=== PATIENT | female | born 1945 | race Caucasian/White ===

== ENCOUNTER → 2018-02-10 12:28 | Outpatient (CLI) | payer OTHER, SELFPAY ==
[2018-02-10 14:55] LABS: INR 2.8 (0.9-1.3); Prothrombin Time 30.1 SECONDS (10.1-12.7)
== END ==
PROVIDERS: PCP Internal Medicine; Visit Provider Internal Medicine
DX: I48.0 Paroxysmal atrial fibrillation (principal); Z79.01 Long term (current) use of anticoagulants
CPT/HCPCS: 36415; 85610

== ENCOUNTER → 2018-03-02 12:35 | Outpatient (CLI) | payer OTHER, SELFPAY ==
[2018-03-02 13:26] LABS: INR 3.8 (0.9-1.3); Prothrombin Time 40.9 SECONDS (10.1-12.7)
== END ==
PROVIDERS: Family Provider Internal Medicine; PCP Internal Medicine; Visit Provider Internal Medicine
DX: I48.0 Paroxysmal atrial fibrillation (principal); Z79.01 Long term (current) use of anticoagulants
CPT/HCPCS: 36415; 85610

== ENCOUNTER → 2018-05-07 16:05 | Outpatient (CLI) | payer OTHER, SELFPAY ==
[2018-05-07 16:38] LABS: INR 2.5 (0.9-1.3); Prothrombin Time 27.2 SECONDS (10.1-12.7)
== END ==
PROVIDERS: Family Provider Internal Medicine; PCP Internal Medicine; Visit Provider Internal Medicine
DX: Z79.01 Long term (current) use of anticoagulants (principal); I48.0 Paroxysmal atrial fibrillation
CPT/HCPCS: 36415; 85610

== ENCOUNTER → 2018-07-28 10:39 | Outpatient (CLI) | payer OTHER, SELFPAY ==
[2018-07-28 11:56] LABS: Prothrombin Time 32.7 SECONDS (10.1-12.7)
== END ==
PROVIDERS: PCP Internal Medicine; Visit Provider Internal Medicine
DX: Z79.01 Long term (current) use of anticoagulants (principal); I48.0 Paroxysmal atrial fibrillation
CPT/HCPCS: 36415; 85610

== ENCOUNTER → 2018-12-14 11:47 | Outpatient (CLI) | payer OTHER, SELFPAY ==
[2018-12-14 12:38] LABS: INR 2.4 (0.9-1.3); Prothrombin Time 27.8 SECONDS (10.1-12.7)
== END ==
PROVIDERS: Family Provider Internal Medicine; PCP Internal Medicine; Visit Provider Pharmacist
DX: Z79.01 Long term (current) use of anticoagulants (principal); I48.0 Paroxysmal atrial fibrillation
CPT/HCPCS: 36415; 85610

== ENCOUNTER → 2019-04-20 13:56 | Outpatient (CLI) | payer OTHER, SELFPAY ==
[2019-04-20 15:11] LABS: INR 3.1 (0.9-1.3); Prothrombin Time 36.5 SECONDS (10.1-12.7)
== END ==
PROVIDERS: PCP Internal Medicine; Visit Provider Internal Medicine
DX: Z79.01 Long term (current) use of anticoagulants (principal); I48.0 Paroxysmal atrial fibrillation
CPT/HCPCS: 36415; 85610

== ENCOUNTER → 2019-05-04 13:23 | Outpatient (CLI) | payer OTHER, SELFPAY ==
[2019-05-04 14:31] LABS: INR 3.3 (0.9-1.3); Prothrombin Time 38.9 SECONDS (10.1-12.7)
== END ==
PROVIDERS: PCP Internal Medicine; Visit Provider Internal Medicine
DX: Z79.01 Long term (current) use of anticoagulants (principal); I48.0 Paroxysmal atrial fibrillation
CPT/HCPCS: 36415; 85610

== ENCOUNTER → 2019-05-25 11:32 | Outpatient (CLI) | payer OTHER, SELFPAY ==
[2019-05-25 12:29] LABS: INR 2.6 (0.9-1.3); Prothrombin Time 30.1 SECONDS (10.1-12.7)
== END ==
PROVIDERS: PCP Internal Medicine; Visit Provider Internal Medicine
DX: Z79.01 Long term (current) use of anticoagulants (principal); I48.0 Paroxysmal atrial fibrillation
CPT/HCPCS: 36415; 85610

== ENCOUNTER → 2019-11-25 12:18 | Outpatient (CLI) | payer OTHER, SELFPAY ==
[2019-11-25 13:39] LABS: INR 1.8 (0.9-1.3)
== END ==
PROVIDERS: PCP Internal Medicine; Referring Provider Internal Medicine; Visit Provider Internal Medicine
DX: Z79.01 Long term (current) use of anticoagulants (principal); I48.0 Paroxysmal atrial fibrillation
CPT/HCPCS: 36415; 85610

== ENCOUNTER → 2019-12-09 16:03 | Outpatient (CLI) | payer OTHER, SELFPAY ==
[2019-12-09 16:38] LABS: INR 2.4 (0.9-1.3); Prothrombin Time 27.7 SECONDS (10.1-12.7)
== END ==
PROVIDERS: PCP Internal Medicine; Referring Provider Internal Medicine; Visit Provider Internal Medicine
DX: Z79.01 Long term (current) use of anticoagulants (principal); I48.0 Paroxysmal atrial fibrillation
CPT/HCPCS: 36415; 85610

== ENCOUNTER → 2019-12-31 10:55 | Outpatient (CLI) | payer OTHER, SELFPAY ==
[2019-12-31 12:39] LABS: INR 2.1 (0.9-1.3); Prothrombin Time 24.3 SECONDS (10.1-12.7)
== END ==
PROVIDERS: PCP Internal Medicine; Referring Provider Internal Medicine; Visit Provider Internal Medicine
DX: Z79.01 Long term (current) use of anticoagulants (principal); I48.0 Paroxysmal atrial fibrillation
CPT/HCPCS: 36415; 85610

== ENCOUNTER → 2020-01-28 14:45 | Outpatient (CLI) | payer OTHER, SELFPAY ==
[2020-01-28 15:43] LABS: INR 2.1 (0.9-1.3); Prothrombin Time 24.2 SECONDS (10.1-12.7)
== END ==
PROVIDERS: PCP Internal Medicine; Visit Provider Internal Medicine
DX: Z79.01 Long term (current) use of anticoagulants (principal); I48.0 Paroxysmal atrial fibrillation
CPT/HCPCS: 36415; 85610

== ENCOUNTER → 2020-04-10 12:54 | Outpatient (CLI) | payer OTHER, SELFPAY ==
[2020-04-10 13:42] LABS: INR 2.6 (0.9-1.3); Prothrombin Time 30.3 SECONDS (10.1-12.7)
== END ==
PROVIDERS: PCP Internal Medicine; Referring Provider Internal Medicine; Visit Provider Internal Medicine
DX: Z79.01 Long term (current) use of anticoagulants (principal)
CPT/HCPCS: 36415; 85610

== ENCOUNTER → 2020-05-12 12:10 | Outpatient (CLI) | payer OTHER, SELFPAY ==
[2020-05-12 12:56] LABS: INR 2.8 (0.9-1.3)
== END ==
PROVIDERS: PCP Internal Medicine; Referring Provider Internal Medicine; Visit Provider Internal Medicine
DX: I48.0 Paroxysmal atrial fibrillation (principal); Z79.01 Long term (current) use of anticoagulants
CPT/HCPCS: 36415; 85610

== ENCOUNTER → 2020-06-09 11:38 | Outpatient (CLI) | payer OTHER, SELFPAY ==
[2020-06-09 12:21] LABS: INR 2.9 (0.9-1.3); Prothrombin Time 33.3 SECONDS (10.1-12.7)
== END ==
PROVIDERS: PCP Internal Medicine; Referring Provider Internal Medicine; Visit Provider Internal Medicine
DX: Z79.01 Long term (current) use of anticoagulants (principal); I48.0 Paroxysmal atrial fibrillation
CPT/HCPCS: 36415; 85610

== ENCOUNTER → 2020-07-21 10:20 | Outpatient (CLI) | payer OTHER, SELFPAY ==
[2020-07-21 11:47] LABS: INR 2.4 (0.9-1.3); Prothrombin Time 27.2 SECONDS (10.1-12.7)
== END ==
PROVIDERS: PCP Internal Medicine; Referring Provider Internal Medicine; Visit Provider Internal Medicine
DX: Z79.01 Long term (current) use of anticoagulants (principal); I48.0 Paroxysmal atrial fibrillation
CPT/HCPCS: 36415; 85610

== ENCOUNTER → 2020-09-01 12:35 | Outpatient (CLI) | payer OTHER, SELFPAY ==
[2020-09-01 12:59] LABS: INR 2.1 (0.9-1.3); Prothrombin Time 23.5 SECONDS (10.1-12.7)
== END ==
PROVIDERS: PCP Internal Medicine; Referring Provider Internal Medicine; Visit Provider Internal Medicine
DX: I48.0 Paroxysmal atrial fibrillation (principal); Z79.01 Long term (current) use of anticoagulants
CPT/HCPCS: 36415; 85610

== ENCOUNTER → 2020-11-13 15:28 | Outpatient (CLI) | payer OTHER, SELFPAY ==
[2020-11-13 16:06] LABS: Prothrombin Time 22.7 SECONDS (10.1-12.7)
== END ==
PROVIDERS: PCP Internal Medicine; Referring Provider Internal Medicine; Visit Provider Internal Medicine
DX: Z79.01 Long term (current) use of anticoagulants (principal)
CPT/HCPCS: 36415; 85610

== ENCOUNTER → 2021-02-22 14:37 | Outpatient (CLI) | payer OTHER, SELFPAY ==
[2021-02-22 15:18] LABS: Prothrombin Time 46.6 SECONDS (10.1-12.7)
== END ==
PROVIDERS: PCP Internal Medicine; Referring Provider Internal Medicine; Visit Provider Internal Medicine
DX: I48.0 Paroxysmal atrial fibrillation (principal); Z79.01 Long term (current) use of anticoagulants
CPT/HCPCS: 36415; 85610

== ENCOUNTER → 2021-03-02 11:22 | Outpatient (CLI) | payer OTHER, SELFPAY ==
[2021-03-02 12:39] LABS: INR 3.4 (0.9-1.3); Prothrombin Time 39.4 SECONDS (10.1-12.7)
== END ==
PROVIDERS: PCP Internal Medicine; Referring Provider Internal Medicine; Visit Provider Internal Medicine
DX: Z79.01 Long term (current) use of anticoagulants (principal); I48.0 Paroxysmal atrial fibrillation
CPT/HCPCS: 36415; 85610

== ENCOUNTER → 2021-03-20 13:06 | Outpatient (CLI) | payer OTHER, SELFPAY ==
[2021-03-20 15:40] LABS: Prothrombin Time 46.8 SECONDS (10.1-12.7)
== END ==
PROVIDERS: PCP Internal Medicine; Referring Provider Internal Medicine; Visit Provider Internal Medicine
DX: Z79.01 Long term (current) use of anticoagulants (principal); I48.0 Paroxysmal atrial fibrillation
CPT/HCPCS: 36415; 85610

== ENCOUNTER → 2021-04-03 10:14 | Outpatient (CLI) | payer OTHER, SELFPAY ==
[2021-04-03 12:17] LABS: INR 2.6 (0.9-1.3); Prothrombin Time 30.1 SECONDS (10.1-12.7)
== END ==
PROVIDERS: PCP Internal Medicine; Referring Provider Internal Medicine; Visit Provider Internal Medicine
DX: Z79.01 Long term (current) use of anticoagulants (principal); I48.0 Paroxysmal atrial fibrillation
CPT/HCPCS: 36415; 85610

== ENCOUNTER → 2021-04-27 13:15 | Outpatient (CLI) | payer OTHER, SELFPAY ==
[2021-04-27 14:10] LABS: INR 2.1 (0.9-1.3); Prothrombin Time 24.2 SECONDS (10.1-12.7)
== END ==
PROVIDERS: PCP Internal Medicine; Referring Provider Internal Medicine; Visit Provider Internal Medicine
DX: Z79.01 Long term (current) use of anticoagulants (principal); I48.0 Paroxysmal atrial fibrillation
CPT/HCPCS: 36415; 85610

== ENCOUNTER → 2021-05-22 14:02 | Outpatient (CLI) | payer OTHER, SELFPAY ==
[2021-05-22 14:36] LABS: INR 2.4 (0.9-1.3); Prothrombin Time 27.7 SECONDS (10.1-12.7)
== END ==
PROVIDERS: PCP Internal Medicine; Referring Provider Internal Medicine; Visit Provider Internal Medicine
DX: I48.0 Paroxysmal atrial fibrillation (principal); Z79.01 Long term (current) use of anticoagulants
CPT/HCPCS: 36415; 85610

== ENCOUNTER → 2021-06-19 14:23 | Outpatient (CLI) | payer OTHER, SELFPAY ==
[2021-06-19 14:57] LABS: INR 2.5 (0.9-1.3)
== END ==
PROVIDERS: PCP Internal Medicine; Referring Provider Internal Medicine; Visit Provider Internal Medicine
DX: Z79.01 Long term (current) use of anticoagulants (principal); I48.0 Paroxysmal atrial fibrillation
CPT/HCPCS: 36415; 85610

== ENCOUNTER → 2021-09-13 12:31 | Outpatient (CLI) | payer OTHER, SELFPAY ==
[2021-09-13 14:24] LABS: INR 2.9 (0.9-1.3)
== END ==
PROVIDERS: PCP Internal Medicine; Referring Provider Internal Medicine; Visit Provider Internal Medicine
DX: I48.0 Paroxysmal atrial fibrillation (principal); Z79.01 Long term (current) use of anticoagulants
CPT/HCPCS: 36415; 85610

== ENCOUNTER → 2021-11-09 15:40 | Outpatient (CLI) | payer OTHER, SELFPAY ==
[2021-11-09 16:32] LABS: INR 3.7 (0.9-1.3); Prothrombin Time 42.8 SECONDS (10.1-12.7)
== END ==
PROVIDERS: PCP Internal Medicine; Referring Provider Internal Medicine; Visit Provider Internal Medicine
DX: Z79.01 Long term (current) use of anticoagulants (principal); I48.0 Paroxysmal atrial fibrillation
CPT/HCPCS: 36415; 85610

== ENCOUNTER → 2021-11-28 13:39 | Outpatient (CLI) | payer OTHER, SELFPAY ==
[2021-11-28 14:28] LABS: INR 2.3 (0.9-1.3); Prothrombin Time 26.5 SECONDS (10.1-12.7)
== END ==
PROVIDERS: PCP Internal Medicine; Referring Provider Internal Medicine; Visit Provider Internal Medicine
DX: I48.0 Paroxysmal atrial fibrillation (principal); Z79.01 Long term (current) use of anticoagulants
CPT/HCPCS: 36415; 85610

== ENCOUNTER → 2022-02-15 15:37 | Outpatient (CLI) | payer OTHER, SELFPAY ==
[2022-02-15 16:34] LABS: INR 2.9 (0.9-1.3); Prothrombin Time 34.3 SECONDS (10.1-12.7)
== END ==
PROVIDERS: PCP Internal Medicine; Referring Provider Internal Medicine; Visit Provider Internal Medicine
DX: Z79.01 Long term (current) use of anticoagulants (principal)
CPT/HCPCS: 36415; 85610

== ENCOUNTER → 2022-04-15 12:21 | Outpatient (CLI) | payer OTHER, SELFPAY ==
[2022-04-15 13:23] LABS: INR 2.8 (0.9-1.3); Prothrombin Time 31.6 SECONDS (10.1-12.7)
== END ==
PROVIDERS: PCP Internal Medicine; Referring Provider Internal Medicine; Visit Provider Internal Medicine
DX: I48.0 Paroxysmal atrial fibrillation (principal); Z79.01 Long term (current) use of anticoagulants
CPT/HCPCS: 36415; 85610

== ENCOUNTER → 2022-06-12 15:43 | Outpatient (CLI) | payer OTHER, SELFPAY ==
[2022-06-12 17:06] LABS: INR 2.7 (0.9-1.3); Prothrombin Time 31.4 SECONDS (10.1-12.7)
== END ==
PROVIDERS: PCP Internal Medicine; Referring Provider Internal Medicine; Visit Provider Internal Medicine
DX: Z79.01 Long term (current) use of anticoagulants (principal)
CPT/HCPCS: 36415; 85610

== ENCOUNTER → 2022-08-26 15:01 | Outpatient (CLI) | payer OTHER, SELFPAY ==
[2022-08-26 23:06] LABS: INR 2.1 (0.9-1.3); Prothrombin Time 24.5 SECONDS (10.1-12.7)
== END ==
PROVIDERS: PCP Internal Medicine; Referring Provider Internal Medicine; Visit Provider Internal Medicine
DX: Z79.01 Long term (current) use of anticoagulants (principal); I48.0 Paroxysmal atrial fibrillation
CPT/HCPCS: 36415; 85610

== ENCOUNTER → 2022-10-22 12:19 | Outpatient (CLI) | payer OTHER, SELFPAY ==
[2022-10-22 13:42] LABS: INR 2.5 (0.9-1.3); Prothrombin Time 29.1 SECONDS (10.1-12.7)
== END ==
PROVIDERS: PCP Internal Medicine; Referring Provider Internal Medicine; Visit Provider Internal Medicine
DX: Z79.01 Long term (current) use of anticoagulants (principal); I48.0 Paroxysmal atrial fibrillation
CPT/HCPCS: 36415; 85610

== ENCOUNTER → 2023-01-27 15:35 | Outpatient (CLI) | payer OTHER, SELFPAY ==
[2023-01-27 16:25] LABS: INR 3.3 (0.9-1.3); Prothrombin Time 38.4 SECONDS (10.1-12.7)
== END ==
PROVIDERS: PCP Internal Medicine; Referring Provider Internal Medicine; Visit Provider Internal Medicine
DX: Z79.01 Long term (current) use of anticoagulants (principal); I48.0 Paroxysmal atrial fibrillation
CPT/HCPCS: 36415; 85610

== ENCOUNTER → 2023-02-07 15:50 | Outpatient (CLI) | payer OTHER, SELFPAY ==
[2023-02-07 17:26] LABS: Add Manual Diff / Slide Review NO; Basophils Absolute Auto 0 /uL (0-100); Basophils Percent Auto 0.5 % (0-2); Eosinophils Absolute Auto 0 /uL (0-450); Eosinophils Percent Auto 0.1 % (2-4); Hematocrit 36.3 % (36-46); Hemoglobin 12.5 g/dL (12.0-16.0); Lymphocytes Absolute Auto 1100 /uL (1100-4500); Lymphocytes Percent Auto 14.4 % (25-40); Mean Corpuscular HGB Conc 34.3 % (30-36); Mean Corpuscular Hemoglobin 32.7 PG (26-34); Mean Corpuscular Volume 95.3 fL (80-100); Monocytes Absolute Auto 200 /uL (0-900); Monocytes Percent Auto 3.2 % (3-14); Neutrophils Absolute Auto 6100 /uL (1500-7000); Neutrophils Percent Auto 81.8 % (50-75); Platelet Count 198 X10^3/uL (150-400); Red Blood Cell Count 3.81 X10^6/uL (4.0-5.2); Red Cell Distribution Width 15.5 % (11.6-14.8); White Blood Cell Count 7.4 X10^3/uL (4.5-11.0)
[2023-02-07 17:51] LABS: Alanine Aminotransferase 34 IU/L (<35); Albumin 4.6 g/dL (3.5-5.0); Albumin Globulin Ratio 1.3 (1.0-2.8); Alkaline Phosphatase 152 U/L (38-126); Aspartate Aminotransferase 37 IU/L (14-36); BUN Creatinine Ratio 36.7 (6-22); Bilirubin Total 0.9 mg/dL (0.2-1.3); Blood Urea Nitrogen 33 mg/dL (7-17); C-Reactive Protein Quant 0.8 mg/dL (<1.0); Calcium 9.1 mg/dL (8.4-10.2); Carbon Dioxide 21 mmol/L (22-32); Chloride 100 mmol/L (98-107); Estimated Glomerular Filt Rate > 60 mL/min (>60); Globulin 3.6 g/dL (1.7-4.1); Glucose 157 mg/dL (80-110); HEMOLYSIS 28 (0-50); Potassium 3.9 mmol/L (3.4-5.1); Sodium 137 mmol/L (137-145); Total Protein 8.2 g/dL (6.3-8.2)
[2023-02-07 19:10] LABS: Erythrocyte Sedimentation Rate 46 MM/HR (0-20)
== END ==
PROVIDERS: PCP Internal Medicine; Referring Provider Internal Medicine Rheumatology; Visit Provider Internal Medicine Rheumatology
DX: Z79.899 Other long term (current) drug therapy (principal)
CPT/HCPCS: 36415; 80053; 85025; 85651; 86140

== ENCOUNTER → 2023-02-14 13:42 | Outpatient (CLI) | payer OTHER, SELFPAY ==
[2023-02-14 14:42] LABS: INR 2.6 (0.9-1.3); Prothrombin Time 29.8 SECONDS (10.1-12.7)
== END ==
PROVIDERS: PCP Internal Medicine; Referring Provider Internal Medicine; Visit Provider Internal Medicine
DX: Z79.01 Long term (current) use of anticoagulants (principal); I48.0 Paroxysmal atrial fibrillation
CPT/HCPCS: 36415; 85610

== ENCOUNTER → 2023-03-20 15:38 | Outpatient (CLI) | payer OTHER, SELFPAY ==
[2023-03-20 18:23] LABS: INR 2.2 (0.9-1.3)
== END ==
PROVIDERS: PCP Internal Medicine; Referring Provider Internal Medicine; Visit Provider Internal Medicine
DX: Z79.01 Long term (current) use of anticoagulants (principal); I48.0 Paroxysmal atrial fibrillation
CPT/HCPCS: 36415; 85610

== ENCOUNTER → 2023-04-21 12:25 | Outpatient (CLI) | payer OTHER, SELFPAY ==
[2023-04-21 14:12] LABS: INR 2.5 (0.9-1.3); Prothrombin Time 28.7 SECONDS (10.1-12.7)
== END ==
PROVIDERS: PCP Internal Medicine; Referring Provider Internal Medicine; Visit Provider Internal Medicine
DX: Z79.01 Long term (current) use of anticoagulants (principal); I48.0 Paroxysmal atrial fibrillation
CPT/HCPCS: 36415; 85610

== ENCOUNTER → 2023-05-23 13:56 | Outpatient (CLI) | payer OTHER, SELFPAY ==
[2023-05-23 14:55] LABS: INR 2.4 (0.9-1.3); Prothrombin Time 27.3 SECONDS (10.1-12.7)
== END ==
PROVIDERS: PCP Internal Medicine; Referring Provider Internal Medicine; Visit Provider Internal Medicine
DX: Z79.01 Long term (current) use of anticoagulants (principal); I48.0 Paroxysmal atrial fibrillation
CPT/HCPCS: 36415; 85610

== ENCOUNTER 2023-07-13 09:31 | Inpatient (IN) | payer OTHER, SELFPAY ==
[2023-07-13] VITALS (53 sets, daily range): BP systolic 86–158; BP diastolic 47–82; PULSE 103–129; RESP 11–30; TEMP 36.4–36.6; O2SAT 95–100; BMI 34.9
--- NOTE | 2023-07-13 09:51 | ED_ITS ---
HPI - Fall General Chief Complaint: Weakness Stated Complaint: Fell out of bed Time Seen by Provider: 07/13/23 09:41 Source: patient, EMS and RN notes reviewed Mode of arrival: EMS Limitations: no limitations History of Present Illness HPI Narrative: 78-year-old female with history of atrial fibrillation on warfarin, hypertension, dyslipidemia, history of breast cancer with lumpectomy newly diagnosed with metastatic breast cancer started radiation last week. Patient states she is had persistent thoracic back pain between her shoulder blades, she is been taking oxycodone for pain. She states she spent most of the weekend bed. She went to get out of bed this morning and sort of slid out of bed to the floor with increase in her thoracic pain. She received 10 mg total of morphine and 5 mg aliquots in transport. She was still quite uncomfortable received additional dose of Dilaudid in his much more comfortable at this time. She states no significant weakness. She denies headache, no fevers, no chest pain or shortness of breath. She denies any nausea or vomiting no new GI or urinary symptoms. No incontinence. No numbness tingling or weakness. Patient states she is felt woozy and just unwell in general. She states this is a recent diagnosis her workup has been outpatient so far. She states she has a history of breast cancer had a lumpectomy was thought to be cured and then recently found to have new breast cancer with metastases some on top of her spine. Patient states she started radiation last week, she is not received any chemotherapy. She does not recall all her medications but no she is on warfarin for atrial fibrillation, metoprolol for hypertension, medication for dyslipidemia she denies any diabetes, renal issues no prior coronary artery disease. She denies any drug allergies. Former smoker, drinks 2-3 glasses of wine daily, no recreational drugs. Patient states her primary care and workup have been through [facility]. She denies any recent hospitalization. Related Data Home Medications Medication Instructions Recorded Confirmed CYANOCOBALAMIN (VITAMIN B-12) 1 tab PO Q DAY ##0 02/03/12 07/13/23 (Vitamin B-12) VITAMIN D 3,000 iu PO QDAY ##0 02/03/12 07/13/23 bumetanide 1 mg tablet 1 mg PO SEEINSTR 07/13/23 07/13/23 dexamethasone 1 mg tablet 1 mg PO SEEINSTR 07/13/23 07/13/23 dexamethasone 2 mg tablet 2 mg PO SEEINSTR 07/13/23 07/13/23 ketoconazole 2 % topical cream 1 applic topical BID 07/13/23 07/13/23 losartan 50 mg tablet 50 mg PO DAILY 07/13/23 07/13/23 metoprolol tartrate 25 mg tablet 25 mg PO BID 07/13/23 07/13/23 potassium chloride 20 mEq 20 meq PO BID 07/13/23 07/13/23 tablet,extended release prednisone 1 mg tablet 2 mg PO DAILY 07/13/23 07/13/23 prednisone 5 mg tablet 5 mg PO SEEINSTR 07/13/23 07/13/23 simvastatin 20 mg tablet 20 mg PO ONCE PM 07/13/23 07/13/23 warfarin 5 mg tablet 5 mg PO SEEINSTR 07/13/23 07/13/23 Allergies Allergy/AdvReac Type Severity Reaction Status Date / Time No Known Drug Allergies Allergy Verified 07/13/23 15:50 Review of Systems Review of Systems ROS Unobtainable: All systems reviewed & are unremarkable except as noted in HPI and below Patient History Social History household members: spouse Smoking Status: Former smoker alcohol intake: current Exam Narrative Exam Narrative: GEN: well nourished, well appearing female, alert and oriented x 3, patient appears to be in mild distress. HEENT: Atraumatic, pupils are equal round reactive to light, extraocular movements are intact, nares are clear, there is no conjunctival pallor. Throat is clear without any exudates, erythema, tonsillar enlargement or uvular deviation HEART: Regular rate and rhythm without murmur, clicks, rubs. No carotid bruits, pulses are equal in upper and lower extremities LUNGS:Lungs clear to auscultation, no wheezes, rales, crackles, chest moves symmetrically ABD:bowel sounds normal, soft, non-tender, no guarding, rebound, rigidity, no masses noted, no hepatosplenomegaly :No CVA tenderness BACK: No cervical, thoracic or lumbar vertebral point tenderness. Patient has decreased range of motion. 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 Dorsalis pedis and tibialis pulses are 2+ and lower extremities. Sensation is intact in the upper and lower extremities. MSCL: Non-tender, no muscle atrophy, muscles strength 5/5 upper and lower extremities, full range of motion. NEURO:CN 2-12 intact, sensation normal SKIN: No rash, erythema or other skin changes noted Initial Vital Signs Initial Vital Signs: Vital Signs Pulse Rate 103 H 07/13/23 09:35 Pulse Oximetry 99 07/13/23 09:35 Course Orders Ordered: ED Orders 07/13/23 10:32 CT chest abd pel w con Stat CT head/brain wo con Stat EKG-12 Lead Stat 07/13/23 10:37 CBC Auto Diff [Complete Blood Count AUTO DIFF] Stat PTT Partial Thromboplastin Jayce Stat Prothrombin Time INR Stat 07/13/23 11:00 CMP [Comprehensive Metabolic Panel] Stat Acetaminophen (Acetaminophen 325 Mg Tablet) 650 mg PO Q6H PRN PRN Reason: Fever/Mild Pain (1-3) Hydromorphone HCl (Hydromorphone 0.5 Mg Inj) 0.5 mg IV Q3H PRN PRN Reason: Pain, Moderate (4-6) Sodium Chloride (Normal Saline 0.9%) 1,000 mls @ 150 mls/hr IV CONT [facility] Last Infusion: 07/13/23 14:52 Dose: 0 mls/hr Documented By: Admin: 07/13/23 13:05 Dose: 150 mls/hr Documented By: SEVERINO Piperacillin Sod/Tazobactam (Sod 3.375 gm/ Sodium Chloride) 100 mls @ 25 mls/hr IV Q8H [facility] Last Admin: 07/13/23 16:01 Dose: 25 mls/hr Documented By: THOMAS Sodium Chloride (Normal Saline 0.9%) 1,000 mls @ 1,000 mls/hr IV BOLUS ONE Stop: 07/13/23 19:59 Melatonin (Melatonin 3 Mg Tablet) 6 mg PO BEDTIME PRN PRN Reason: Insomnia Metoprolol Tartrate (Metoprolol Tartrate 5 Mg/5 Ml Inj) 5 mg IV Q5M PRN PRN Reason: HR >130, hold for SBP <100 Last Admin: 07/13/23 15:43 Dose: 5 mg Documented By: THOMAS Metoprolol Tartrate (Metoprolol Ir 25 Mg Tablet) 25 mg PO BID [facility] Last Admin: 07/13/23 16:51 Dose: 25 mg Documented By: LDV Naloxone HCl (Naloxone 0.4 Mg/Ml Vial) 0.2 mg IV Q2MIN PRN PRN Reason: Opiate Reversal Oxycodone HCl (Oxycodone Ir 5 Mg Tablet) 5 mg PO Q3HR PRN PRN Reason: Pain, Moderate (4-6) Oxycodone HCl (Oxycodone Ir 10 Mg Tablet) 10 mg PO Q3HR PRN PRN Reason: Pain, Severe (7-10) Warfarin Protocol (Warfarin Per Pharmacy (Inr 2-3)) 1 request MISC NOW PRN PRN Reason: Atrial fib Discontinued Medications Diltiazem HCl (Diltiazem 5 Mg/Ml Sdv) 10 mg IV NOW ONE Stop: 07/13/23 18:10 Hydromorphone HCl (Hydromorphone 1 Mg Inj) 1 mg IV NOW ONE Stop: 07/13/23 09:43 Last Admin: 07/13/23 10:03 Dose: 1 mg Documented By: SEVERINO Hydromorphone HCl (Hydromorphone 1 Mg Inj) 1 mg IV NOW ONE Stop: 07/13/23 12:14 Last Admin: 07/13/23 12:19 Dose: 1 mg Documented By: SEVERINO Hydromorphone HCl (Hydromorphone 0.5 Mg Inj) 0.5 mg IV Q4H PRN PRN Reason: Pain, Moderate (4-6) Sodium Chloride (Normal Saline 0.9%) 1,000 mls @ 1,000 mls/hr IV BOLUS ONE Stop: 07/13/23 11:31 Last Infusion: 07/13/23 11:36 Dose: Infused Documented By: Admin: 07/13/23 10:35 Dose: 1,000 mls/hr Documented By: SEVERINO Piperacillin Sod/Tazobactam (Sod 4.5 gm/ Sodium Chloride) 100 mls @ 200 mls/hr IV NOW ONE Stop: 07/13/23 12:01 Last Infusion: 07/13/23 13:26 Dose: Infused Documented By: Admin: 07/13/23 12:10 Dose: 200 mls/hr Documented By: SEVERINO Phytonadione 5 mg/ Sodium (Chloride) 100.5 mls @ 201 mls/hr IV NOW ONE Stop: 07/13/23 13:28 Last Infusion: 07/13/23 14:52 Dose: Infused Documented By: Admin: 07/13/23 14:00 Dose: 201 mls/hr Documented By: SEVERINO Piperacillin Sod/Tazobactam (Sod 3.375 gm/ Sodium Chloride) 100 mls @ 25 mls/hr IV Q8H [facility] Last Admin: 07/13/23 15:53 Dose: Not Given Documented By: LDV Vital Signs Vital signs: Vital Signs - 8 hr 07/13/23 11:15 07/13/23 11:15 07/13/23 11:45 Pulse Rate 106 H 113 H Respiratory Rate 19 17 Blood Pressure 128/71 Pulse Oximetry 100 100 07/13/23 12:00 07/13/23 12:02 07/13/23 12:02 Pulse Rate 110 H 114 H Respiratory Rate 26 H 24 Blood Pressure 141/66 H Pulse Oximetry 100 99 07/13/23 12:15 07/13/23 12:15 07/13/23 12:30 Pulse Rate 109 H 114 H Respiratory Rate 24 17 Blood Pressure 149/70 H Pulse Oximetry 99 100 07/13/23 12:30 07/13/23 12:45 07/13/23 12:45 Pulse Rate 105 H Respiratory Rate 25 H Blood Pressure 149/66 H 123/67 Pulse Oximetry 98 07/13/23 13:00 07/13/23 13:01 07/13/23 13:01 Pulse Rate 112 H 111 H Respiratory Rate 22 23 Blood Pressure 158/67 H Pulse Oximetry 98 98 07/13/23 13:15 07/13/23 13:15 07/13/23 13:30 Pulse Rate 117 H Respiratory Rate 16 Blood Pressure 135/58 L 149/71 H Pulse Oximetry 100 07/13/23 13:30 07/13/23 13:45 07/13/23 13:45 Pulse Rate 118 H 120 H Respiratory Rate 21 19 Blood Pressure 121/71 Pulse Oximetry 100 97 07/13/23 14:00 07/13/23 14:00 07/13/23 14:15 Pulse Rate 121 H 121 H Respiratory Rate 19 18 Blood Pressure 133/82 Pulse Oximetry 98 99 07/13/23 14:15 Pulse Rate Respiratory Rate Blood Pressure 137/72 Pulse Oximetry MDM - Fall Lab Data 07/13/23 10:37 07/13/23 16:20 Labs: Lab Results 07/13/23 07/13/23 Range/Units 10:37 11:00 WBC 12.2 H (4.5-11.0) X10^3/uL RBC 4.52 (4.0-5.2) X10^6/uL Hgb 14.5 (12.0-16.0) g/dL Hct 43.4 (36-46) % MCV 95.9 (80-100) fL MCH 32.1 (26-34) PG MCHC 33.4 (30-36) % RDW 14.4 (11.6-14.8) % Plt Count 135 L (150-400) X10^3/uL Neut % (Auto) 95.9 H (50-75) % Lymph % (Auto) 2.0 L (25-40) % Irwin % (Auto) 1.8 L (3-14) % Eos % (Auto) 0.0 L (2-4) % Baso % (Auto) 0.3 (0-2) % Neut # (Auto) 44243 H (9200-6202) /uL Lymph # (Auto) 200 L (6084-1901) /uL Irwin # (Auto) 200 (0-900) /uL Eos # (Auto) 0 (0-450) /uL Baso # (Auto) 0 (0-100) /uL PT 76.5 H (10.1-12.7) SECONDS INR 6.5 H* (0.9-1.3) APTT 44 H (26-36) SECONDS Sodium 127 L (137-145) mmol/L Potassium 4.6 (3.4-5.1) mmol/L Chloride 92 L (98-107) mmol/L Carbon Dioxide 29 (22-32) mmol/L BUN 42 H (7-17) mg/dL Creatinine 0.64 (0.52-1.04) mg/dL Estimated GFR > 60 (>60) mL/min BUN/Creatinine Ratio 65.6 H (6-22) Glucose 155 H (80-110) mg/dL Lactate 3.8 H (0.7-2.1) mmol/L Calcium 9.0 (8.4-10.2) mg/dL Magnesium 2.3 (1.6-2.3) mg/dL Total Bilirubin 1.1 (0.2-1.3) mg/dL AST 29 (14-36) IU/L ALT 35 H (<35) IU/L Alkaline Phosphatase 113 (38-126) U/L Total Protein 6.5 (6.3-8.2) g/dL Albumin 3.7 (3.5-5.0) g/dL Globulin 2.8 (1.7-4.1) g/dL Albumin/Globulin Ratio 1.3 (1.0-2.8) Procalcitonin 0.34 (<0.5) ng/mL Imaging Data CT scan - head: Radiologist's Impression: Close Head CT (Signed) Dario Garcia - 07/13/23 Chest/Abdomen/Pelvis CT 07/13/23 Launch?[place] [address] CT Scan Report Signed Patient: Maricarmen Springer MR#: [id number] : 1945 Acct:[id number] Age/Sex: 78 / F Date of Service: 07/13/23 Loc: ED Accession Number: [id number] Procedure: CT head/brain wo con Ordering Provider: Giana Norman D.O. PROCEDURE: CT HEAD/BRAIN WO CON INDICATIONS: thoracic back pain, acute on chronic, new breast ca w/ mets TECHNIQUE: Noncontrast 4.5 mm thick angled axial sections acquired from the foramen magnum to the vertex, with coronal and sagittal reformats. For radiation dose reduction, the following was used: automated exposure control, adjustment of mA and/or kV according to patient size. COMPARISON: [facility], CT, HEAD WITHOUT CONTRAST, 12/14/2017, 17:27. FINDINGS: Image quality: Excellent. CSF spaces: Basal cisterns are patent. No extra-axial fluid collections. The ventricles are symmetric in size and shape. Brain: No intracranial bleeds or masses. There is cerebral volume loss for age, with resultant ventricular and sulcal prominence. There are periventricular and deep white matter chronic small vessel ischemic changes. There is intracranial internal carotid artery atherosclerosis. Skull and face: Calvarium and visualized facial bones appear intact, without suspicious lesions. Sinuses: Visualized sinuses and mastoids are clear. IMPRESSION: No acute intracranial pathology. Dictated by: Dario Garcia M.D. on 07/13/2023 at 11:50 Approved by: Dario Garcia M.D. on 07/13/2023 at 11:51 CT chest/abd/pelvis: Radiologist's Impression: [address] [address] [address] Scan Report Signed Patient: Maricarmen Springer MR#: [id number] : 1945 Acct:[id number] Age/Sex: 78 / F Date of Service: 07/13/23 Loc: ED Accession Number: [id number] Procedure: CT chest abd pel w con Ordering Provider: Giana Norman D.O. PROCEDURE: CT CHEST ABD PEL W CON INDICATIONS: fall, thoracic back pain acute on chr, new breast ca w/ mets TECHNIQUE: After the administration of intravenous contrast, 5 mm thick sections acquired from the lung apices to the symphysis. 2.5 mm thick coronal and sagittal reformats were acquired. Additional 7 mm thick coronal maximum intensity projection (MIP) reformats acquired through the lungs. Optional 10-minute delayed imaging may be performed from the kidneys to the bladder. For radiation dose reduction, the following was used: automated exposure control, adjustment of mA and/or kV according to patient size. COMPARISON: None. FINDINGS: Image quality: Excellent. CHEST: Lungs: No pulmonary contusions or lacerations. No acute airspace opacities. No pneumothorax or hemothorax. Central and peripheral airways appear patent and normal in caliber. Mediastinum: No mediastinal hematomas. Heart size is enlarged. No pericardial effusion. Thoracic aorta and pulmonary arteries demonstrate normal size and enhancement. No mediastinal or hilar adenopathy. Esophagus is normal in caliber. No hiatal hernia. Chest wall: No rib fractures. No subcutaneous emphysema. No axillary or supraclavicular adenopathy. Thyroid gland is mildly heterogeneous. Right breast lumpectomy. ABDOMEN: Solid organs: Liver is normal in size and enhancement, without lacerations. Nodular liver contour. Gallbladder is unremarkable. Biliary system is non-dilated. Pancreas enhances normally, without transection. Spleen is normal in size and enhancement, without lacerations. No adrenal hematomas. Both kidneys enhance normally, without hydronephrosis or lacerations. Peritoneum and bowel: The sigmoid colon is inflamed, and there are extensive diverticula present. There is free air adjacent to the rectosigmoid junction, without drainable fluid collection present. Trace free air in the upper abdomen as well. Nodes and vessels: No retroperitoneal or mesenteric adenopathy. Aorta and inferior vena cava are normal in size and enhancement. Miscellaneous: No ventral hernias. PELVIS: Genitourinary: Bladder wall thickness is normal. Miscellaneous: No inguinal hernias or adenopathy. Bones: Age indeterminate compression deformity of the T5 vertebral body, with superimposed sclerosis. No endplate retropulsion. There is heterogeneous sclerosis of the T6 vertebral body, with soft tissue mass extending into the spinal canal causing mild spinal canal narrowing. IMPRESSION: Age indeterminate compression deformity of the T5 vertebral body, without endplate retropulsion. Pathologic fracture is suspected. Perforated colonic diverticulitis. No abscess. Small volume free air within the abdomen. Osseous metastatic disease of the T6 vertebral body, with soft tissue extension into the spinal canal, causing mild narrowing. Findings discussed with Dr. Norman at time of dictation. Cirrhosis versus pseudocirrhosis. Correlate with history of treated liver malignancy. Dictated by: Dario Garcia M.D. on 07/13/2023 at 11:52 Approved by: Dario Garcia M.D. on 07/13/2023 at 12:02 ECG Data Attestation: I personally reviewed and interpreted this ECG as follows: Prior ECG tracings: available for review Interpretation: AFib rate 99 IL 184 QRS of 438, no acute ST elevation or depression noted. Patient has prior from 07/03/2014 with no acute change. MDM Narrative Medical decision making narrative: 78-year-old female with recent diagnosis of metastatic breast cancer with lesions on or near her spine. Patient states she slipped from bed to the floor she is had some persistent back pain little bit worsened today, she is improved after several doses of narcotic medication she is uncomfortable to sit herself up in bed but could be rolled with minimal discomfort. She is no acute neurologic changes appreciated but states she is a little woozy. Slightly tachycardic at 1:03 a.m. afebrile 100% room air respirations are 22 with a appropriate blood pressure. Patient is on warfarin so labs including CBC, CMP INR were obtained. Plan for CT head and chest abdomen pelvis to evaluate for any metastatic lesions to the brain, bleed or spinal column injuries or pathologic fracture. Patient does not have any acute tenderness on physical exam but was quite uncomfortable prior to pain medication. Workup shows CBC of platelets with 135, white count of 12, hemoglobin is appropriate at 14 does have a leftward shift. INR 6.5 today, sodium is 127 potassium appropriate 4.6 with a chloride 92 BUN is 42 with appropriate renal function glucose 155 otherwise ALT 35 but normal LFTs bilirubin. Patient head CT, chest abdomen pelvis show, perforated diverticulitis, head CT shows no acute change, patient has a thoracic compression fracture level that is suspicious for pathologic fracture as well as mass just below with some involvement at the spinal cord no significant cord compression. Spoke with Orthopedic surgery, Dr. Murillo they feel patient would benefit from being transferred secondary to lack of treatment for pathologic/metastatic lesions. Discussed that she did recently start radiation as well. Patient would benefit from inpatient hospitalization for her perforated diverticulitis. Was covered with a doses Zofran. So far patient has had some slight tachycardia but been hemodynamically stable. Spoke with Dr. Lopez, neurosurgery at [facility]. Patient has been seen there, he has recent images states no new pathologic fracture or spinal mass no new changes appreciated. Discussed concerns from our orthopedic service. Reviewed patient's findings, she is had some weakness this week but no other acute neurologic changes. Noted INR was elevated 6. He does recommend some reversal, neuro checks regularly and patient can follow up outpatient next week for follow up with no plan for surgical intervention at this time. Does ask that baby re-contacted if any other new acute changes neurologic changes occur. Dr. Payne, spoke with hospitalist, reviewed recommendations from Neurosurgery, we will consult with General surgery. Accepts for transfer unless there issues with General surgery. Agrees with plan for reversal at this time. Dr. Gonzalez, general surgery: Reviewed patient has perforated diverticulitis but no fluid collection or abscess noted does not appear septic. Does have other complicating factors at this time they will consult. Dr. Murillo, orthopedic surgery: Aware patient is admitted here. Discussed recommendations from neurosurgery and plan for transfer if any new changes. Critical Care Time Critical Care Time Critical Care Time: Yes Total Critical Care Time: 35 Attestation: The high probability of a clinically significant, sudden or life threatening deterioration of the [cardiac, neuro] system(s) required my full and direct attention, intervention and personal management. The aggregate critical care time was [] minutes. This time is in addition to time spent performing reported procedures but includes the following: [x] Data Review and interpretation [x] Patient assessment and monitoring of vital signs [x] Documentation [x] Medication orders and management Discharge Plan Departure Patient Disposition: Admitted As Inpatient Clinical Impression: Diverticulitis of colon with perforation, Hyponatremia, Closed compression fracture of thoracic vertebra Admit Date/Time: 07/13/23 14:16 Admit Provider: Michelet Payne
[2023-07-13] MEDS: HYDROMORPHONE 1 MG INJ IV ×2 (10:03→12:19)
--- NOTE | 2023-07-13 10:32 | DI.CT.S_ITS ---
PROCEDURE: CT CHEST ABD PEL W CON INDICATIONS: fall, thoracic back pain acute on chr, new breast ca w/ mets TECHNIQUE: After the administration of intravenous contrast, 5 mm thick sections acquired from the lung apices to the symphysis. 2.5 mm thick coronal and sagittal reformats were acquired. Additional 7 mm thick coronal maximum intensity projection (MIP) reformats acquired through the lungs. Optional 10-minute delayed imaging may be performed from the kidneys to the bladder. For radiation dose reduction, the following was used: automated exposure control, adjustment of mA and/or kV according to patient size. COMPARISON: None. FINDINGS: Image quality: Excellent. CHEST: Lungs: No pulmonary contusions or lacerations. No acute airspace opacities. No pneumothorax or hemothorax. Central and peripheral airways appear patent and normal in caliber. Mediastinum: No mediastinal hematomas. Heart size is enlarged. No pericardial effusion. Thoracic aorta and pulmonary arteries demonstrate normal size and enhancement. No mediastinal or hilar adenopathy. Esophagus is normal in caliber. No hiatal hernia. Chest wall: No rib fractures. No subcutaneous emphysema. No axillary or supraclavicular adenopathy. Thyroid gland is mildly heterogeneous. Right breast lumpectomy. ABDOMEN: Solid organs: Liver is normal in size and enhancement, without lacerations. Nodular liver contour. Gallbladder is unremarkable. Biliary system is non-dilated. Pancreas enhances normally, without transection. Spleen is normal in size and enhancement, without lacerations. No adrenal hematomas. Both kidneys enhance normally, without hydronephrosis or lacerations. Peritoneum and bowel: The sigmoid colon is inflamed, and there are extensive diverticula present. There is free air adjacent to the rectosigmoid junction, without drainable fluid collection present. Trace free air in the upper abdomen as well. Nodes and vessels: No retroperitoneal or mesenteric adenopathy. Aorta and inferior vena cava are normal in size and enhancement. Miscellaneous: No ventral hernias. PELVIS: Genitourinary: Bladder wall thickness is normal. Miscellaneous: No inguinal hernias or adenopathy. Bones: Age indeterminate compression deformity of the T5 vertebral body, with superimposed sclerosis. No endplate retropulsion. There is heterogeneous sclerosis of the T6 vertebral body, with soft tissue mass extending into the spinal canal causing mild spinal canal narrowing. IMPRESSION: Age indeterminate compression deformity of the T5 vertebral body, without endplate retropulsion. Pathologic fracture is suspected. Perforated colonic diverticulitis. No abscess. Small volume free air within the abdomen. Osseous metastatic disease of the T6 vertebral body, with soft tissue extension into the spinal canal, causing mild narrowing. Findings discussed with Dr. Norman at time of dictation. Cirrhosis versus pseudocirrhosis. Correlate with history of treated liver malignancy. Dictated by: Dario Garcia M.D. on 07/13/2023 at 11:52 Approved by: Dario Garcia M.D. on 07/13/2023 at 12:02
--- NOTE | 2023-07-13 10:32 | DI.CT.S_ITS ---
PROCEDURE: CT HEAD/BRAIN WO CON INDICATIONS: thoracic back pain, acute on chronic, new breast ca w/ mets TECHNIQUE: Noncontrast 4.5 mm thick angled axial sections acquired from the foramen magnum to the vertex, with coronal and sagittal reformats. For radiation dose reduction, the following was used: automated exposure control, adjustment of mA and/or kV according to patient size. COMPARISON: [facility], CT, HEAD WITHOUT CONTRAST, 12/14/2017, 17:27. FINDINGS: Image quality: Excellent. CSF spaces: Basal cisterns are patent. No extra-axial fluid collections. The ventricles are symmetric in size and shape. Brain: No intracranial bleeds or masses. There is cerebral volume loss for age, with resultant ventricular and sulcal prominence. There are periventricular and deep white matter chronic small vessel ischemic changes. There is intracranial internal carotid artery atherosclerosis. Skull and face: Calvarium and visualized facial bones appear intact, without suspicious lesions. Sinuses: Visualized sinuses and mastoids are clear. IMPRESSION: No acute intracranial pathology. Dictated by: Dario Garcia M.D. on 07/13/2023 at 11:50 Approved by: Dario Garcia M.D. on 07/13/2023 at 11:51
[2023-07-13] MEDS: SODIUM CHLORIDE 0.9% 1,000 ML 1000 ML IV ×2 (10:35→19:24)
[2023-07-13 10:41] LABS: Add Manual Diff / Slide Review NO; Basophils Absolute Auto 0 /uL (0-100); Basophils Percent Auto 0.3 % (0-2); Eosinophils Absolute Auto 0 /uL (0-450); Hematocrit 43.4 % (36-46); Hemoglobin 14.5 g/dL (12.0-16.0); Lymphocytes Absolute Auto 200 /uL (1100-4500); Mean Corpuscular HGB Conc 33.4 % (30-36); Mean Corpuscular Hemoglobin 32.1 PG (26-34); Mean Corpuscular Volume 95.9 fL (80-100); Monocytes Absolute Auto 200 /uL (0-900); Monocytes Percent Auto 1.8 % (3-14); Neutrophils Absolute Auto 11700 /uL (1500-7000); Neutrophils Percent Auto 95.9 % (50-75); Platelet Count 135 X10^3/uL (150-400); Red Blood Cell Count 4.52 X10^6/uL (4.0-5.2); Red Cell Distribution Width 14.4 % (11.6-14.8); White Blood Cell Count 12.2 X10^3/uL (4.5-11.0)
[2023-07-13 10:42] LABS: Prothrombin Time 76.5 SECONDS (10.1-12.7)
[2023-07-13 10:44] LABS: PTT Partial Thromboplastin Tim 44 SECONDS (26-36)
--- NOTE | 2023-07-13 10:47 | PC.NURSE ---
lab called to report INR 6.5, Dr. Norman
[2023-07-13 10:50] LABS: INR 6.5 (0.9-1.3)
[2023-07-13 11:16] LABS: Alanine Aminotransferase 35 IU/L (<35); Albumin 3.7 g/dL (3.5-5.0); Albumin Globulin Ratio 1.3 (1.0-2.8); Alkaline Phosphatase 113 U/L (38-126); Aspartate Aminotransferase 29 IU/L (14-36); BUN Creatinine Ratio 65.6 (6-22); Bilirubin Total 1.1 mg/dL (0.2-1.3); Blood Urea Nitrogen 42 mg/dL (7-17); Carbon Dioxide 29 mmol/L (22-32); Chloride 92 mmol/L (98-107); Estimated Glomerular Filt Rate > 60 mL/min (>60); Globulin 2.8 g/dL (1.7-4.1); Glucose 155 mg/dL (80-110); HEMOLYSIS 25 (0-50); Potassium 4.6 mmol/L (3.4-5.1); Sodium 127 mmol/L (137-145); Total Protein 6.5 g/dL (6.3-8.2)
[2023-07-13] MEDS: PIPERACILLIN/TAZO 4.5 GM in SODIUM CHLORIDE 0.9% 100 ML IV (12:10)
[2023-07-13] MEDS: SODIUM CHLORIDE 0.9% 1,000 ML 150 ML IV ×2 (13:05→22:37)
[2023-07-13] MEDS: PHYTONADIONE (VIT K1) 5 MG in SODIUM CHLORIDE 0.9% 100 ML 201 MG IV (14:00)
--- NOTE | 2023-07-13 14:43 | PC.NURSE ---
Fox can be reached at [phone]. Pt splits her time between [place] and [place], homes in both places.
--- NOTE | 2023-07-13 15:04 | PM.CALLCOV.1 ---
Call Coverage Note Note Date of Patient Contact: 07/13/23 Time of Patient Contact: 15:04 Narrative of Care Provided: Hypercoaguable, perforated diverticulitis w/o abscess. small amount free air. Agree with reversal of INR of 6 and conservative management with IV antibiotics. Will follow.
[2023-07-13] MEDS: METOPROLOL TARTRATE 5 MG/5 ML INJ IV (15:43)
[2023-07-13 15:48] LABS: Magnesium 2.3 mg/dL (1.6-2.3)
[2023-07-13 15:48] LABS: Lactate (Lactic Acid) 3.8 mmol/L (0.7-2.1)
[2023-07-13] MEDS: PIPERACILLIN/TAZO 3.375 GM in SODIUM CHLORIDE 0.9% 100 ML IV (16:01)
[2023-07-13 16:05] LABS: Procalcitonin 0.34 ng/mL (<0.5)
[2023-07-13 16:35] LABS: INR 4.1 (0.9-1.3); Prothrombin Time 47.2 SECONDS (10.1-12.7)
[2023-07-13 16:39] LABS: Lactate (Lactic Acid) 2.9 mmol/L (0.7-2.1)
[2023-07-13 16:40] LABS: BUN Creatinine Ratio 51.5 (6-22); Blood Urea Nitrogen 34 mg/dL (7-17); Carbon Dioxide 25 mmol/L (22-32); Chloride 96 mmol/L (98-107); Estimated Glomerular Filt Rate > 60 mL/min (>60); Glucose 151 mg/dL (80-110); HEMOLYSIS < 15 (0-50); Potassium 4.7 mmol/L (3.4-5.1); Sodium 129 mmol/L (137-145)
[2023-07-13] MEDS: METOPROLOL IR 25 MG TABLET PO (16:51)
[2023-07-13 17:41] LABS: Reflexed Lactate in 2 Hours Y
[2023-07-13 17:43] LABS: Appearance Urine UA SL CLOUDY; Bilirubin Urine UA NEGATIVE (NEGATIVE); Color Urine UA YELLOW; Glucose Urine UA NEGATIVE (Negative); Ketones Urine UA NEGATIVE (NEGATIVE); Leukocyte Esterase Urine UA NEGATIVE (NEGATIVE); Nitrite Urine UA NEGATIVE (Negative); Occult Blood Urine UA TRACE-INTACT (Negative); Protein Urine UA NEGATIVE (Negative); Specific Gravity Urine UA 1.025 (1.000-1.035); Urobilinogen Urine UA 0.2 E.U./dL (0.2)
--- NOTE | 2023-07-13 18:08 | DI.RAD.S_ITS ---
PROCEDURE: XR ABDOMEN MIN 2V INDICATIONS: assess amout of free air vs prior CT TECHNIQUE: 2 views of the abdomen were acquired. COMPARISON: [facility], CT, CT CHEST ABD PEL W CON, 07/13/2023, 10:52. FINDINGS: Surgical changes and devices: None. Bowel: No pneumoperitoneum. The bowel gas pattern is normal. Soft tissues: No masses; visualized solid organ contours appear normal in size. No suspicious abdominal calcifications. Bones: No suspicious bony abnormalities. IMPRESSION: No appreciable pneumoperitoneum. Dictated by: Dario Garcia M.D. on 07/13/2023 at 19:24 Approved by: Dario Garcia M.D. on 07/13/2023 at 19:24
[2023-07-13 18:17] LABS: Bacteria Urine Many (>30); Culture Indicated Urine Specimen Cultured; RBC Urine 0-1/HPF (0-5/HPF); Squamous Epithelial Cell Urine None Seen (0-5/HPF); WBC Urine 1-5/HPF (0-5/HPF)
--- NOTE | 2023-07-13 18:23 | PM.HP.1 ---
History of Present Illness History of Present Illness Chief complaint: Fell out of bed Narrative: Maricarmen Springer is a 78-year-old female with past medical history of atrial fibrillation on warfarin, recently diagnosed metastatic breast cancer receiving radiation at , hypertension, hyperlipidemia, daily alcohol use, and obesity who presents with weakness, increased back pain, and abdominal pain. Patient states she is had persistent thoracic back pain between her shoulder blades, she is been taking oxycodone for pain. She states she spent most of the weekend bed. She went to get out of bed this morning and sort of slid out of bed to the floor with increase in her thoracic pain. She received 10 mg total of morphine and 5 mg aliquots in transport. She was still quite uncomfortable received additional dose of Dilaudid in his much more comfortable at this time. She states no significant weakness. She denies headache, no fevers, no chest pain or shortness of breath. She denies any nausea or vomiting no new GI or urinary symptoms. No incontinence. No numbness tingling or weakness. Patient states she is felt woozy and just unwell in general. She states this is a recent diagnosis her workup has been outpatient so far. She states she has a history of breast cancer had a lumpectomy was thought to be cured and then recently found to have new breast cancer with metastases some on top of her spine. Patient states she started radiation last week, she is not received any chemotherapy. She does not recall all her medications but no she is on warfarin for atrial fibrillation, metoprolol for hypertension, medication for dyslipidemia she denies any diabetes, renal issues no prior coronary artery disease. She denies any drug allergies. Former smoker, drinks 2-3 glasses of wine daily, no recreational drugs. Patient states her primary care and workup have been through [facility]. She denies any recent hospitalization. [facility] Social History household members: spouse Smoking Status: Former smoker alcohol intake: current Meds Home Medications and Allergies Home Medications Medication Instructions Recorded Confirmed Type CYANOCOBALAMIN (VITAMIN B-12) 1 tab PO Q DAY ##0 02/03/12 07/13/23 History (Vitamin B-12) VITAMIN D 3,000 iu PO QDAY ##0 02/03/12 07/13/23 History bumetanide 1 mg tablet 1 mg PO EVENSTR 07/13/23 07/13/23 History dexamethasone 1 mg tablet 1 mg PO SEEINSTR 07/13/23 07/13/23 History dexamethasone 2 mg tablet 2 mg PO SEEINSTR 07/13/23 07/13/23 History ketoconazole 2 % topical cream 1 applic topical BID 07/13/23 07/13/23 History losartan 50 mg tablet 50 mg PO DAILY 07/13/23 07/13/23 History metoprolol tartrate 25 mg tablet 25 mg PO BID 07/13/23 07/13/23 History potassium chloride 20 mEq 20 meq PO BID 07/13/23 07/13/23 History tablet,extended release prednisone 1 mg tablet 2 mg PO DAILY 07/13/23 07/13/23 History prednisone 5 mg tablet 5 mg PO SEEINSTR 07/13/23 07/13/23 History simvastatin 20 mg tablet 20 mg PO ONCE PM 07/13/23 07/13/23 History warfarin 5 mg tablet 5 mg PO SEEINSTR 07/13/23 07/13/23 History Allergies Allergy/AdvReac Type Severity Reaction Status Date / Time No Known Drug Allergies Allergy Verified 07/13/23 15:50 Review of Systems Review of Systems Narrative: All other systems reviewed with the patient and are negative unless otherwise stated. Exam Vital Signs (past 8 hours): - 07/13/23 10:30 07/13/23 10:45 07/13/23 10:45 Pulse Rate 112 H 104 H Respiratory Rate 25 H 18 Blood Pressure 144/66 H Pulse Oximetry 99 99 07/13/23 11:00 07/13/23 11:00 07/13/23 11:15 Pulse Rate 111 H Respiratory Rate 16 Blood Pressure 135/63 128/71 Pulse Oximetry 100 07/13/23 11:15 07/13/23 11:45 07/13/23 12:00 Pulse Rate 106 H 113 H 110 H Respiratory Rate 19 17 26 H Blood Pressure Pulse Oximetry 100 100 100 07/13/23 12:02 07/13/23 12:02 07/13/23 12:15 Pulse Rate 114 H 109 H Respiratory Rate 24 24 Blood Pressure 141/66 H Pulse Oximetry 99 99 07/13/23 12:15 07/13/23 12:30 07/13/23 12:30 Pulse Rate 114 H Respiratory Rate 17 Blood Pressure 149/70 H 149/66 H Pulse Oximetry 100 07/13/23 12:45 07/13/23 12:45 07/13/23 13:00 Pulse Rate 105 H 112 H Respiratory Rate 25 H 22 Blood Pressure 123/67 Pulse Oximetry 98 98 07/13/23 13:01 07/13/23 13:01 07/13/23 13:15 Pulse Rate 111 H 117 H Respiratory Rate 23 16 Blood Pressure 158/67 H Pulse Oximetry 98 100 07/13/23 13:15 07/13/23 13:30 07/13/23 13:30 Pulse Rate 118 H Respiratory Rate 21 Blood Pressure 135/58 L 149/71 H Pulse Oximetry 100 07/13/23 13:45 07/13/23 13:45 07/13/23 14:00 Pulse Rate 120 H 121 H Respiratory Rate 19 19 Blood Pressure 121/71 Pulse Oximetry 97 98 07/13/23 14:00 07/13/23 14:15 07/13/23 14:15 Pulse Rate 121 H Respiratory Rate 18 Blood Pressure 133/82 137/72 Pulse Oximetry 99 07/13/23 14:30 07/13/23 14:30 07/13/23 14:45 Pulse Rate 123 H 122 H Respiratory Rate 23 19 Blood Pressure 134/62 Pulse Oximetry 99 98 07/13/23 14:45 07/13/23 15:00 07/13/23 17:06 Pulse Rate 127 H 113 H Respiratory Rate 15 29 H Blood Pressure 136/64 Pulse Oximetry 99 99 07/13/23 17:07 07/13/23 17:07 07/13/23 17:30 Pulse Rate 122 H 120 H Respiratory Rate 19 16 Blood Pressure 122/71 Pulse Oximetry 98 96 07/13/23 17:30 Pulse Rate Respiratory Rate Blood Pressure 114/61 Pulse Oximetry Oxygen Delivery Method Room Air Narrative Exam Narrative: GEN: appears uncomfortable HEENT: dry mucous membranes, PERRL NECK: trachea midline, no JVD CV: tachycardic, irregularly irregular, no murmurs PULM: clear bilaterally ABD: firm, diffusely tender, distended, no organomegaly EXT: warm and well perfused with no edema NEURO: awake, alert, oriented, no focal deficits Objective Labs 07/13/23 10:37 07/13/23 16:20 Labs: Laboratory Results - last 24 hr 07/13/23 07/13/23 07/13/23 10:37 11:00 16:20 WBC 12.2 H RBC 4.52 Hgb 14.5 Hct 43.4 MCV 95.9 MCH 32.1 MCHC 33.4 RDW 14.4 Plt Count 135 L Neut % (Auto) 95.9 H Lymph % (Auto) 2.0 L [place] % (Auto) 1.8 L Eos % (Auto) 0.0 L Baso % (Auto) 0.3 Neut # (Auto) 72174 H Lymph # (Auto) 200 L [place] # (Auto) 200 Eos # (Auto) 0 Baso # (Auto) 0 PT 76.5 H 47.2 H D INR 6.5 H* 4.1 H APTT 44 H Sodium 127 L 129 L Potassium 4.6 4.7 Chloride 92 L 96 L Carbon Dioxide 29 25 BUN 42 H 34 H Creatinine 0.64 0.66 Estimated GFR > 60 > 60 BUN/Creatinine Ratio 65.6 H 51.5 H Glucose 155 H 151 H Lactate 3.8 H 2.9 H Calcium 9.0 9.0 Magnesium 2.3 Total Bilirubin 1.1 AST 29 ALT 35 H Alkaline Phosphatase 113 Total Protein 6.5 Albumin 3.7 Globulin 2.8 Albumin/Globulin Ratio 1.3 Procalcitonin 0.34 Urine Color Urine Appearance Urine pH Ur Specific [place] Urine Protein Urine Glucose (UA) Urine Ketones Urine Occult Blood Urine Nitrate Urine Bilirubin Urine Urobilinogen Ur Leukocyte Esterase Urine RBC Urine WBC Ur Squamous Epith Cells Urine Bacteria Ur Culture Indicated? 07/13/23 17:41 WBC RBC Hgb Hct MCV MCH MCHC RDW Plt Count Neut % (Auto) Lymph % (Auto) [place] % (Auto) Eos % (Auto) Baso % (Auto) Neut # (Auto) Lymph # (Auto) [place] # (Auto) Eos # (Auto) Baso # (Auto) PT INR APTT Sodium Potassium Chloride Carbon Dioxide BUN Creatinine Estimated GFR BUN/Creatinine Ratio Glucose Lactate Calcium Magnesium Total Bilirubin AST ALT Alkaline Phosphatase Total Protein Albumin Globulin Albumin/Globulin Ratio Procalcitonin Urine Color Yellow Urine Appearance Sl cloudy Urine pH 5.0 Ur Specific [place] 1.025 Urine Protein Negative Urine Glucose (UA) Negative Urine Ketones Negative Urine Occult Blood Trace-intact Urine Nitrate Negative Urine Bilirubin Negative Urine Urobilinogen 0.2 Ur Leukocyte Esterase Negative Urine RBC 0-1/hpf Urine WBC 1-5/hpf Ur Squamous Epith Cells None seen Urine Bacteria Many (>30) H Ur Culture Indicated? 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 Transfer if she develops neuro deficits. -q.4 neuro checks -pain control -PT/OT # metastatic breast cancer to spine, with history of breast cancer 15 years ago and was in remission -followed by Oncology of and currently receiving radiation, has undergone 4 rounds so far -has not yet started chemotherapy -holding dexamethasone and prednisone taper due to active infection # supratherapeutic INR -patient on warfarin for atrial fibrillation and INR 6 in ED, vitamin K given -now 4.1 -daily INR # atrial fibrillation with RVR -heart rate 120s, likely due to pain and dehydration -now improving with p.o. metoprolol and IV metoprolol push PRN # hyponatremia -sodium 129 -patient appears dry -continue IV fluids # acute weakness -likely multifactorial, due to cancer, diverticulitis and back pain -PT/OT eval Code status is DNR. DVT prophylaxis with SCDs. Proxy is Fox. I have reviewed home meds and used all available resources to reconcile the home meds. Case discussed with ED physician/APC and patient will be admitted to the hospitalist service for further workup and management. This patient will be admitted as ICU and will require greater than 2 midnights of hospital time to treat perforated diverticulitis, AFib RVR and thoracic compression fracture.
[2023-07-13 18:25] LABS: Reflexed Lactate in 2 Hours Y
[2023-07-13 18:27] LABS: Lactate 2HR (Lactic Acid Rflx) 3.1 mmol/L (0.7-2.1)
[2023-07-13] MEDS: HYDROMORPHONE 0.5 MG INJ IV (19:23)
--- NOTE | 2023-07-13 19:38 | PC.NURSE ---
Pt transferred from room 222 to room 231 at approximately 1700. Pt A&Ox2, unsure of location. Pt c/o back and abdominal pain. Provider aware. HR 120's-140's, dropping to 110's. Pt attempted bedpan, unable to void. Bladder scan >999. Provider notified. Chicas catheter placed, U/O 1225, cloudy orange. UA obtained. Pt HR sustained 130's, provider notified, EKG obtained, pt in afib RVR. Provider notified. Pt HR 110's sustained, bolus given (See MAR). Pt c/o 8/10 abdominal pain. Pain medication given per order (See MAR). Pt resting comfortably. Call light within reach, bed alarm active, pt visible from nursing station. Care ongoing.
[2023-07-13 20:13] LABS: Lactate 2HR (Lactic Acid Rflx) 2.8 mmol/L (0.7-2.1)
[2023-07-13] MEDS: LORazepam 2 MG/ML INJ 0.5 MG IV (22:51)
[2023-07-14] VITALS (92 sets, daily range): BP systolic 68–154; BP diastolic 38–98; PULSE 113–145; RESP 15–40; TEMP 36.3–36.5; O2SAT 95–99
[2023-07-14] MEDS: PIPERACILLIN/TAZO 3.375 GM in SODIUM CHLORIDE 0.9% 100 ML IV ×4 (00:43→23:50)
[2023-07-14] MEDS: SODIUM CHLORIDE 0.9% 500 ML IV ×2 (01:20→03:00)
[2023-07-14] MEDS: OXYCODONE IR 5 MG TABLET PO (02:00)
[2023-07-14] MEDS: LORazepam 2 MG/ML INJ 0.5 MG IV (04:41)
[2023-07-14 05:25] LABS: Add Manual Diff / Slide Review NO; Basophils Absolute Auto 0 /uL (0-100); Eosinophils Absolute Auto 0 /uL (0-450); Eosinophils Percent Auto 0.1 % (2-4); Hematocrit 37.2 % (36-46); Hemoglobin 12.6 g/dL (12.0-16.0); INR 1.8 (0.9-1.3); Lymphocytes Absolute Auto 200 /uL (1100-4500); Lymphocytes Percent Auto 2.5 % (25-40); Mean Corpuscular HGB Conc 33.7 % (30-36); Mean Corpuscular Hemoglobin 32.4 PG (26-34); Mean Corpuscular Volume 96.1 fL (80-100); Monocytes Absolute Auto 100 /uL (0-900); Monocytes Percent Auto 1.6 % (3-14); Neutrophils Absolute Auto 5800 /uL (1500-7000); Neutrophils Percent Auto 95.8 % (50-75); Platelet Count 83 X10^3/uL (150-400); Prothrombin Time 20.4 SECONDS (10.1-12.7); Red Blood Cell Count 3.88 X10^6/uL (4.0-5.2); Red Cell Distribution Width 14.3 % (11.6-14.8); White Blood Cell Count 6.1 X10^3/uL (4.5-11.0)
[2023-07-14 05:33] LABS: Blood Urea Nitrogen 30 mg/dL (7-17); Carbon Dioxide 21 mmol/L (22-32); Chloride 104 mmol/L (98-107); Estimated Glomerular Filt Rate > 60 mL/min (>60); Glucose 129 mg/dL (80-110); HEMOLYSIS < 15 (0-50); Potassium 4.4 mmol/L (3.4-5.1); Sodium 131 mmol/L (137-145)
[2023-07-14] MEDS: METOPROLOL TARTRATE 5 MG/5 ML INJ 2.5 MG IV (06:39)
[2023-07-14] MEDS: SODIUM CHLORIDE 0.9% 1,000 ML 150 ML IV (06:53)
[2023-07-14] MEDS: AMIODARONE 150 MG/100 ML PIGGYBACK 600 MG IV (08:31)
[2023-07-14] MEDS: NOREPINEPHRINE BITARTRATE/D5W 4 MG/250 ML PLAST..BAG 35.72 MG IV ×2 (08:47→15:13)
[2023-07-14] MEDS: AMIODARONE 360 MG/200 ML PIGGYBACK 33.33 MG IV (08:54)
--- NOTE | 2023-07-14 09:10 | DI.RAD.S_ITS ---
PROCEDURE: XR CHEST FOR PICC 1V INDICATIONS: Line placement COMPARISON: [facility], CT, CT CHEST ABD PEL W CON, 07/13/2023, 10:52. [facility], CR, CHEST 2 VIEW, 07/03/2014, 10:07. FINDINGS: PICC was placed by the intravenous therapy team from the left side. Fluoroscopic spot film demonstrates the tip of PICC projecting to the area of upper SVC. IMPRESSION: Tip of PICC projects to the area of upper SVC. Dictated by: Del Acuña M.D. on 07/14/2023 at 9:26 Approved by: Del Acuña M.D. on 07/14/2023 at 9:27
[2023-07-14 09:27] LABS: Lactate (Lactic Acid) 2.5 mmol/L (0.7-2.1)
--- NOTE | 2023-07-14 09:36 | P.CONS_ITS ---
History of Present Illness Consult details Date Patient Seen: 07/14/23 Time Patient Seen: 09:36 Chief complaint: Fell out of bed Reason for consult: Perforated diverticulitis Requesting provider: Fei Moreno Narrative: Admitted last evening after fall from bed. Metastatic breast cancer with spine mets, altered mental status, perforated diverticulitis found on body CT. To my read it is micro, w/o abscess or fluid and should respond to antibiotics Meds Home Medications and Allergies Home Medications Medication Instructions Recorded Confirmed Type CYANOCOBALAMIN (VITAMIN B-12) 1 tab PO Q DAY ##0 02/03/12 07/13/23 History (Vitamin B-12) VITAMIN D 3,000 iu PO QDAY ##0 02/03/12 07/13/23 History bumetanide 1 mg tablet 1 mg PO SEEINSTR 07/13/23 07/13/23 History dexamethasone 1 mg tablet 1 mg PO SEEINSTR 07/13/23 07/13/23 History dexamethasone 2 mg tablet 2 mg PO SEEINSTR 07/13/23 07/13/23 History ketoconazole 2 % topical cream 1 applic topical BID 07/13/23 07/13/23 History losartan 50 mg tablet 50 mg PO DAILY 07/13/23 07/13/23 History metoprolol tartrate 25 mg tablet 25 mg PO BID 07/13/23 07/13/23 History potassium chloride 20 mEq 20 meq PO BID 07/13/23 07/13/23 History tablet,extended release prednisone 1 mg tablet 2 mg PO DAILY 07/13/23 07/13/23 History prednisone 5 mg tablet 5 mg PO SEEINSTR 07/13/23 07/13/23 History simvastatin 20 mg tablet 20 mg PO ONCE PM 07/13/23 07/13/23 History warfarin 5 mg tablet 5 mg PO SEEINSTR 07/13/23 07/13/23 History Allergies Allergy/AdvReac Type Severity Reaction Status Date / Time No Known Drug Allergies Allergy Verified 07/13/23 15:50 Review of Systems Review of Systems ROS: Yes unobtainable due to mental condition Exam Vital Signs (past 8 hours): - 07/14/23 02:00 07/14/23 02:01 07/14/23 02:01 Temperature Pulse Rate 126 H 128 H Respiratory Rate 23 25 H Blood Pressure 89/52 L Pulse Oximetry 97 98 Oxygen Flow Rate 07/14/23 02:30 07/14/23 02:31 07/14/23 02:31 Temperature Pulse Rate 125 H 130 H Respiratory Rate 23 24 Blood Pressure 80/38 L Pulse Oximetry 98 98 Oxygen Flow Rate 07/14/23 03:00 07/14/23 03:01 07/14/23 03:01 Temperature Pulse Rate 125 H 129 H Respiratory Rate 25 H 21 Blood Pressure 86/52 L Pulse Oximetry 97 98 Oxygen Flow Rate 07/14/23 03:30 07/14/23 03:30 07/14/23 04:00 Temperature 97.7 F Pulse Rate 126 H Respiratory Rate 21 Blood Pressure 98/56 L Pulse Oximetry 96 Oxygen Flow Rate 07/14/23 04:00 07/14/23 04:00 07/14/23 04:27 Temperature Pulse Rate 129 H Respiratory Rate 18 Blood Pressure 103/51 L 94/56 L Pulse Oximetry 96 Oxygen Flow Rate 07/14/23 04:27 07/14/23 04:30 07/14/23 04:30 Temperature Pulse Rate 139 H 145 H Respiratory Rate 22 25 H Blood Pressure 100/56 L Pulse Oximetry 97 96 Oxygen Flow Rate 07/14/23 05:00 07/14/23 05:00 07/14/23 05:30 Temperature Pulse Rate 142 H Respiratory Rate 21 Blood Pressure 95/55 L 81/43 L Pulse Oximetry 95 Oxygen Flow Rate 07/14/23 05:30 07/14/23 05:36 07/14/23 05:36 Temperature Pulse Rate 134 H 132 H Respiratory Rate 17 20 Blood Pressure 106/59 L Pulse Oximetry 96 97 Oxygen Flow Rate 07/14/23 05:52 07/14/23 05:52 07/14/23 06:00 Temperature 97.3 F L Pulse Rate 136 H 136 H Respiratory Rate 20 19 Blood Pressure 92/54 L 90/53 L Pulse Oximetry 97 96 Oxygen Flow Rate 0 07/14/23 06:00 07/14/23 06:00 07/14/23 06:03 Temperature Pulse Rate 141 H Respiratory Rate 21 Blood Pressure 87/55 L 90/53 L Pulse Oximetry 96 Oxygen Flow Rate 07/14/23 06:03 07/14/23 06:30 07/14/23 06:30 Temperature Pulse Rate 138 H 130 H Respiratory Rate 20 20 Blood Pressure 89/50 L Pulse Oximetry 96 99 Oxygen Flow Rate 07/14/23 07:00 07/14/23 07:00 07/14/23 07:08 Temperature Pulse Rate 137 H 136 H Respiratory Rate 22 22 Blood Pressure 91/53 L Pulse Oximetry 98 99 Oxygen Flow Rate 07/14/23 07:08 07/14/23 07:30 07/14/23 07:30 Temperature Pulse Rate 129 H Respiratory Rate Blood Pressure 103/55 L 90/51 L Pulse Oximetry 97 Oxygen Flow Rate 07/14/23 08:00 07/14/23 08:00 07/14/23 08:01 Temperature Pulse Rate 143 H Respiratory Rate 24 Blood Pressure 96/69 114/56 L Pulse Oximetry 98 Oxygen Flow Rate 07/14/23 08:01 07/14/23 08:07 07/14/23 08:07 Temperature Pulse Rate 135 H 133 H Respiratory Rate 23 23 Blood Pressure 93/54 L Pulse Oximetry 98 98 Oxygen Flow Rate 07/14/23 08:30 07/14/23 08:30 07/14/23 08:43 Temperature Pulse Rate 140 H Respiratory Rate 23 Blood Pressure 93/52 L 72/42 L Pulse Oximetry 98 Oxygen Flow Rate 07/14/23 08:43 07/14/23 08:46 07/14/23 08:46 Temperature Pulse Rate 126 H 120 H Respiratory Rate 24 24 Blood Pressure 76/47 L Pulse Oximetry 98 98 Oxygen Flow Rate 07/14/23 08:51 07/14/23 08:51 07/14/23 08:55 Temperature Pulse Rate 123 H Respiratory Rate 23 Blood Pressure 87/50 L 91/53 L Pulse Oximetry 97 Oxygen Flow Rate 07/14/23 08:55 07/14/23 09:00 07/14/23 09:00 Temperature Pulse Rate 115 H 116 H Respiratory Rate 23 23 Blood Pressure 101/59 L Pulse Oximetry 98 98 Oxygen Flow Rate 07/14/23 09:16 07/14/23 09:16 Temperature Pulse Rate 116 H Respiratory Rate 23 Blood Pressure 124/59 L Pulse Oximetry 98 Oxygen Flow Rate Oxygen Delivery Method Room Air Oxygen Flow Rate 0 Narrative Exam Narrative: pain with movement, hard to determine from back or abdomen Const General: ill appearing HENMT Head: normocephalic and atraumatic Eyes Sclera: scleral abnormality Neck Neck: trachea midline Resp Effort & Inspection: normal respiratory effort and normal respiratory pattern Auscultation: diminished lung sounds Cardio Rate: tachycardic Rhythm: abnormal rhythm GI Palpation: soft and tender (general tender to palpation, no acute abdomen) Other: distended with trunkal obesity Skin General: No elasticity normal and atrophy Neuro Cranial Nerves: tongue midline Cognition: abnormal cognition Psych Appearance: disheveled Speech and Movement: speech and movement abnormal Judgment: poor Objective Labs 07/14/23 04:58 07/14/23 04:58 Labs: Laboratory Results - last 24 hr 07/13/23 07/13/23 07/13/23 10:37 11:00 16:20 WBC 12.2 H RBC 4.52 Hgb 14.5 Hct 43.4 MCV 95.9 MCH 32.1 MCHC 33.4 RDW 14.4 Plt Count 135 L Neut % (Auto) 95.9 H Lymph % (Auto) 2.0 L [place] % (Auto) 1.8 L Eos % (Auto) 0.0 L Baso % (Auto) 0.3 Neut # (Auto) 19347 H Lymph # (Auto) 200 L [place] # (Auto) 200 Eos # (Auto) 0 Baso # (Auto) 0 PT 76.5 H 47.2 H D INR 6.5 H* 4.1 H APTT 44 H Sodium 127 L 129 L Potassium 4.6 4.7 Chloride 92 L 96 L Carbon Dioxide 29 25 BUN 42 H 34 H Creatinine 0.64 0.66 Estimated GFR > 60 > 60 BUN/Creatinine Ratio 65.6 H 51.5 H Glucose 155 H 151 H Lactate 3.8 H 2.9 H Calcium 9.0 9.0 Magnesium 2.3 Total Bilirubin 1.1 AST 29 ALT 35 H Alkaline Phosphatase 113 Total Protein 6.5 Albumin 3.7 Globulin 2.8 Albumin/Globulin Ratio 1.3 Procalcitonin 0.34 Urine Color Urine Appearance Urine pH Ur Specific [place] Urine Protein Urine Glucose (UA) Urine Ketones Urine Occult Blood Urine Nitrate Urine Bilirubin Urine Urobilinogen Ur Leukocyte Esterase Urine RBC Urine WBC Ur Squamous Epith Cells Urine Bacteria Ur Culture Indicated? 07/13/23 07/13/23 07/13/23 17:41 18:05 19:55 WBC RBC Hgb Hct MCV MCH MCHC RDW Plt Count Neut % (Auto) Lymph % (Auto) [place] % (Auto) Eos % (Auto) Baso % (Auto) Neut # (Auto) Lymph # (Auto) [place] # (Auto) Eos # (Auto) Baso # (Auto) PT INR APTT Sodium Potassium Chloride Carbon Dioxide BUN Creatinine Estimated GFR BUN/Creatinine Ratio Glucose Lactate 3.1 H 2.8 H Calcium Magnesium Total Bilirubin AST ALT Alkaline Phosphatase Total Protein Albumin Globulin Albumin/Globulin Ratio Procalcitonin Urine Color Yellow Urine Appearance Sl cloudy Urine pH 5.0 Ur Specific [place] 1.025 Urine Protein Negative Urine Glucose (UA) Negative Urine Ketones Negative Urine Occult Blood Trace-intact Urine Nitrate Negative Urine Bilirubin Negative Urine Urobilinogen 0.2 Ur Leukocyte Esterase Negative Urine RBC 0-1/hpf Urine WBC 1-5/hpf Ur Squamous Epith Cells None seen Urine Bacteria Many (>30) H Ur Culture Indicated? Specimen cultured 07/14/23 07/14/23 04:58 08:13 WBC 6.1 RBC 3.88 L Hgb 12.6 Hct 37.2 MCV 96.1 MCH 32.4 MCHC 33.7 RDW 14.3 Plt Count 83 L Neut % (Auto) 95.8 H Lymph % (Auto) 2.5 L [place] % (Auto) 1.6 L Eos % (Auto) 0.1 L Baso % (Auto) 0.0 Neut # (Auto) 5800 Lymph # (Auto) 200 L [place] # (Auto) 100 Eos # (Auto) 0 Baso # (Auto) 0 PT 20.4 H D INR 1.8 H APTT Sodium 131 L Potassium 4.4 Chloride 104 Carbon Dioxide 21 L BUN 30 H Creatinine 0.79 Estimated GFR > 60 BUN/Creatinine Ratio 38.0 H Glucose 129 H Lactate 2.5 H Calcium 8.0 L Magnesium Total Bilirubin AST ALT Alkaline Phosphatase Total Protein Albumin Globulin Albumin/Globulin Ratio Procalcitonin Urine Color Urine Appearance Urine pH Ur Specific [place] Urine Protein Urine Glucose (UA) Urine Ketones Urine Occult Blood Urine Nitrate Urine Bilirubin Urine Urobilinogen Ur Leukocyte Esterase Urine RBC Urine WBC Ur Squamous Epith Cells Urine Bacteria Ur Culture Indicated? PFSH Social History household members: spouse Tobacco & Substance Use Smoking Status: Former smoker alcohol intake: current Assessment & Plan Assessment & Plan narrative: Metastatic breast cancer pathologic spine fracture from michelle mets Morbid obesity Perforated diverticulitis INR 6 on arrival, now 1.8 with reversal dehydration Plan: Poor surgical candidate, hemodynamically unstable. CT appearance suggest the perforated diverticulitis should respond to IV antibiotics alone. IF not, I recommend hospice. Time Spent With Patient Time with patient: 30 to 49 minutes with 50% spent counseling/coordinating care
--- NOTE | 2023-07-14 10:19 | OT.IPNOTE ---
Hold for medical reasons per MD in rounds. Will continue to follow.
[2023-07-14 10:41] LABS: Reflexed Lactate in 2 Hours Y
--- NOTE | 2023-07-14 11:34 | PT-IP ANOTE ---
Received PT orders and completed chart review. Per discussion at AM interdisciplinary rounds, pt is not medically stable for PT assessment this date. Will continue to follow for goals of care and initiate PT evaluation when appropriate.
[2023-07-14 11:35] LABS: Lactate 2HR (Lactic Acid Rflx) 3.3 mmol/L (0.7-2.1)
[2023-07-14] MEDS: HYDROMORPHONE 0.5 MG INJ IV ×2 (11:37→23:20)
[2023-07-14] MEDS: THIAMINE 500 MG in SODIUM CHLORIDE 0.9% 100 ML 420 MG IV ×3 (11:41→20:38)
[2023-07-14] MEDS: LORazepam 2 MG/ML INJ IV ×3 (13:52→22:17)
--- NOTE | 2023-07-14 13:52 | P.TELICUCN_ITS ---
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 Pt initaly presented to for worsening pain associated with mets. in ED found to be in RVR, and her mental status worsened. CT during w/u noted perforated diverticulum. During my eval,m pt was arousable but clearly delirious and somnolescent which is a chnage from [facility]. currently on amio gtt, and broad spectrum abx. no known bone mets per report given to [facility] Social History household members: spouse Smoking Status: Former smoker alcohol intake: current Current Medications Current Medications Medications: Home Medications CYANOCOBALAMIN (VITAMIN B-12) (Vitamin B-12) 1 tab PO Q DAY ##0 02/03/12 [History Confirmed 07/13/23] VITAMIN D 3,000 iu PO QDAY ##0 02/03/12 [History Confirmed 07/13/23] bumetanide 1 mg tablet 1 mg PO SEEINSTR 07/13/23 [History Confirmed 07/13/23] dexamethasone 1 mg tablet 1 mg PO SEEINSTR 07/13/23 [History Confirmed 07/13/23] dexamethasone 2 mg tablet 2 mg PO SEEINSTR 07/13/23 [History Confirmed 07/13/23] ketoconazole 2 % topical cream 1 applic topical BID 07/13/23 [History Confirmed 07/13/23] losartan 50 mg tablet 50 mg PO DAILY 07/13/23 [History Confirmed 07/13/23] metoprolol tartrate 25 mg tablet 25 mg PO BID 07/13/23 [History Confirmed 07/13/23] potassium chloride 20 mEq tablet,extended release 20 meq PO BID 07/13/23 [History Confirmed 07/13/23] prednisone 1 mg tablet 2 mg PO DAILY 07/13/23 [History Confirmed 07/13/23] prednisone 5 mg tablet 5 mg PO SEEINSTR 07/13/23 [History Confirmed 07/13/23] simvastatin 20 mg tablet 20 mg PO ONCE PM 07/13/23 [History Confirmed 07/13/23] warfarin 5 mg tablet 5 mg PO SEEINSTR 07/13/23 [History Confirmed 07/13/23] Visit Medications (administered) Generic Name Dose Route Start Last Admin Trade Name Freq PRN Reason Stop Dose Admin Hydromorphone HCl 0.5 mg 07/13/23 16:00 07/14/23 11:37 Hydromorphone 0.5 Mg Inj IV 0.5 mg Q3H PRN Administration Pain, Moderate (4-6) Piperacillin Sod/Tazobactam 100 mls @ 25 mls/hr 07/13/23 16:15 07/14/23 10:42 Sod 3.375 gm/ Sodium Chloride IV 25 mls/hr Q8H BERT Administration Amiodarone HCl/Dextrose 360 mg in 200 mls @ 33.333 mls/hr 07/14/23 08:20 07/14/23 08:54 Nexterone IV 07/14/23 14:19 33.333 mls/hr NOW ONE 33.33 mls/hr Administration Protocol NOREPINEPHRINE BITARTRATE/D5W 4 mg in 250 mls @ 35.72 mls/hr 07/14/23 08:13 07/14/23 08:47 Levophed IV 0.1 mcg/kg/min TITRATE BERT 35.72 mls/hr Administration Protocol 0.1 MCG/KG/MIN Thiamine HCl 500 mg/ Sodium 105 mls @ 420 mls/hr 07/14/23 09:45 07/14/23 11:41 Chloride IV 420 mls/hr TID BERT Administration Lorazepam 0 mg 07/14/23 07:58 07/14/23 13:52 Lorazepam 2 Mg/Ml Inj IV 2 mg CIWAPRN PRN Administration Alcohol Withdrawal Protocol Metoprolol Tartrate 25 mg 07/13/23 15:35 07/13/23 21:28 Metoprolol Ir 25 Mg Tablet PO Not Given BID BERT Oxycodone HCl 5 mg 07/13/23 15:29 07/14/23 02:00 Oxycodone Ir 5 Mg Tablet PO 5 mg Q3HR PRN Administration Pain, Moderate (4-6) Exam Vital Signs (past 8 hours): - 07/14/23 06:00 07/14/23 06:00 07/14/23 06:00 Temperature 97.3 F L Pulse Rate 136 H 141 H Respiratory Rate 19 21 Blood Pressure 90/53 L 87/55 L Pulse Oximetry 96 96 Oxygen Delivery Method Oxygen Flow Rate 0 07/14/23 06:03 07/14/23 06:03 07/14/23 06:30 Temperature Pulse Rate 138 H Respiratory Rate 20 Blood Pressure 90/53 L 89/50 L Pulse Oximetry 96 Oxygen Delivery Method Oxygen Flow Rate 07/14/23 06:30 07/14/23 07:00 07/14/23 07:00 Temperature Pulse Rate 130 H 137 H Respiratory Rate 20 22 Blood Pressure 91/53 L Pulse Oximetry 99 98 Oxygen Delivery Method Oxygen Flow Rate 07/14/23 07:08 07/14/23 07:08 07/14/23 07:30 Temperature Pulse Rate 136 H 129 H Respiratory Rate 22 Blood Pressure 103/55 L Pulse Oximetry 99 97 Oxygen Delivery Method Oxygen Flow Rate 07/14/23 07:30 07/14/23 08:00 07/14/23 08:00 Temperature Pulse Rate 143 H Respiratory Rate 24 Blood Pressure 90/51 L 96/69 Pulse Oximetry 98 Oxygen Delivery Method Oxygen Flow Rate 07/14/23 08:01 07/14/23 08:01 07/14/23 08:07 Temperature Pulse Rate 135 H Respiratory Rate 23 Blood Pressure 114/56 L 93/54 L Pulse Oximetry 98 Oxygen Delivery Method Oxygen Flow Rate 07/14/23 08:07 07/14/23 08:30 07/14/23 08:30 Temperature Pulse Rate 133 H 140 H Respiratory Rate 23 23 Blood Pressure 93/52 L Pulse Oximetry 98 98 Oxygen Delivery Method Oxygen Flow Rate 07/14/23 08:43 07/14/23 08:43 07/14/23 08:46 Temperature Pulse Rate 126 H Respiratory Rate 24 Blood Pressure 72/42 L 76/47 L Pulse Oximetry 98 Oxygen Delivery Method Oxygen Flow Rate 07/14/23 08:46 07/14/23 08:51 07/14/23 08:51 Temperature Pulse Rate 120 H 123 H Respiratory Rate 24 23 Blood Pressure 87/50 L Pulse Oximetry 98 97 Oxygen Delivery Method Oxygen Flow Rate 07/14/23 08:55 07/14/23 08:55 07/14/23 09:00 Temperature Pulse Rate 115 H Respiratory Rate 23 Blood Pressure 91/53 L 101/59 L Pulse Oximetry 98 Oxygen Delivery Method Oxygen Flow Rate 07/14/23 09:00 07/14/23 09:00 07/14/23 09:16 Temperature Pulse Rate 116 H Respiratory Rate 23 Blood Pressure 124/59 L Pulse Oximetry 98 Oxygen Delivery Method Room Air Oxygen Flow Rate 07/14/23 09:16 07/14/23 09:26 07/14/23 09:26 Temperature Pulse Rate 116 H 124 H Respiratory Rate 23 22 Blood Pressure 134/98 H Pulse Oximetry 98 99 Oxygen Delivery Method Oxygen Flow Rate 07/14/23 09:30 07/14/23 09:32 07/14/23 09:32 Temperature Pulse Rate 128 H 132 H Respiratory Rate 21 22 Blood Pressure 98/48 L Pulse Oximetry 98 97 Oxygen Delivery Method Oxygen Flow Rate 07/14/23 09:40 07/14/23 09:40 07/14/23 09:49 Temperature Pulse Rate 132 H Respiratory Rate 21 Blood Pressure 107/54 L 100/52 L Pulse Oximetry 97 Oxygen Delivery Method Oxygen Flow Rate 07/14/23 09:49 07/14/23 10:00 07/14/23 10:00 Temperature Pulse Rate 120 H 123 H Respiratory Rate 17 21 Blood Pressure 117/56 L Pulse Oximetry 98 98 Oxygen Delivery Method Oxygen Flow Rate 07/14/23 10:30 07/14/23 10:31 07/14/23 10:31 Temperature Pulse Rate 122 H 122 H Respiratory Rate 22 22 Blood Pressure 128/57 L Pulse Oximetry 98 97 Oxygen Delivery Method Oxygen Flow Rate 07/14/23 10:49 07/14/23 10:49 07/14/23 11:00 Temperature Pulse Rate 121 H Respiratory Rate 21 Blood Pressure 129/60 131/62 Pulse Oximetry 98 Oxygen Delivery Method Oxygen Flow Rate 07/14/23 11:00 07/14/23 11:30 07/14/23 11:30 Temperature Pulse Rate 125 H 126 H Respiratory Rate 22 21 Blood Pressure 135/62 Pulse Oximetry 98 97 Oxygen Delivery Method Oxygen Flow Rate 07/14/23 12:00 07/14/23 12:01 07/14/23 12:01 Temperature Pulse Rate 142 H 143 H Respiratory Rate 19 22 Blood Pressure 103/58 L Pulse Oximetry 95 96 Oxygen Delivery Method Oxygen Flow Rate 07/14/23 12:30 07/14/23 12:30 07/14/23 13:00 Temperature Pulse Rate 128 H 125 H Respiratory Rate 21 16 Blood Pressure 115/66 Pulse Oximetry 96 96 Oxygen Delivery Method Oxygen Flow Rate 07/14/23 13:00 07/14/23 13:30 07/14/23 13:31 Temperature Pulse Rate 137 H Respiratory Rate 26 H Blood Pressure 132/62 132/88 Pulse Oximetry 97 Oxygen Delivery Method Oxygen Flow Rate 07/14/23 13:31 Temperature Pulse Rate 132 H Respiratory Rate 26 H Blood Pressure Pulse Oximetry 98 Oxygen Delivery Method Oxygen Flow Rate Oxygen Delivery Method Room Air Oxygen Flow Rate 0 Narrative Exam Narrative: somnolecent, ill appearing Chest Other: symmetric chest rise Cardio Other: afib on monitor Objective Labs 07/14/23 04:58 07/14/23 04:58 Labs: Laboratory Results - last 24 hr 07/13/23 07/13/23 07/13/23 10:37 11:00 16:20 WBC RBC Hgb Hct MCV MCH MCHC RDW Plt Count Neut % (Auto) Lymph % (Auto) [place] % (Auto) Eos % (Auto) Baso % (Auto) Neut # (Auto) Lymph # (Auto) [place] # (Auto) Eos # (Auto) Baso # (Auto) PT 47.2 H D INR 4.1 H Sodium 129 L Potassium 4.7 Chloride 96 L Carbon Dioxide 25 BUN 34 H Creatinine 0.66 Estimated GFR > 60 BUN/Creatinine Ratio 51.5 H Glucose 151 H Lactate 3.8 H 2.9 H Calcium 9.0 Magnesium 2.3 Procalcitonin 0.34 Urine Color Urine Appearance Urine pH Ur Specific [place] Urine Protein Urine Glucose (UA) Urine Ketones Urine Occult Blood Urine Nitrate Urine Bilirubin Urine Urobilinogen Ur Leukocyte Esterase Urine RBC Urine WBC Ur Squamous Epith Cells Urine Bacteria Ur Culture Indicated? 07/13/23 07/13/23 07/13/23 17:41 18:05 19:55 WBC RBC Hgb Hct MCV MCH MCHC RDW Plt Count Neut % (Auto) Lymph % (Auto) [place] % (Auto) Eos % (Auto) Baso % (Auto) Neut # (Auto) Lymph # (Auto) [place] # (Auto) Eos # (Auto) Baso # (Auto) PT INR Sodium Potassium Chloride Carbon Dioxide BUN Creatinine Estimated GFR BUN/Creatinine Ratio Glucose Lactate 3.1 H 2.8 H Calcium Magnesium Procalcitonin Urine Color Yellow Urine Appearance Sl cloudy Urine pH 5.0 Ur Specific [place] 1.025 Urine Protein Negative Urine Glucose (UA) Negative Urine Ketones Negative Urine Occult Blood Trace-intact Urine Nitrate Negative Urine Bilirubin Negative Urine Urobilinogen 0.2 Ur Leukocyte Esterase Negative Urine RBC 0-1/hpf Urine WBC 1-5/hpf Ur Squamous Epith Cells None seen Urine Bacteria Many (>30) H Ur Culture Indicated? Specimen cultured 07/14/23 07/14/23 07/14/23 04:58 08:13 11:14 WBC 6.1 RBC 3.88 L Hgb 12.6 Hct 37.2 MCV 96.1 MCH 32.4 MCHC 33.7 RDW 14.3 Plt Count 83 L Neut % (Auto) 95.8 H Lymph % (Auto) 2.5 L [place] % (Auto) 1.6 L Eos % (Auto) 0.1 L Baso % (Auto) 0.0 Neut # (Auto) 5800 Lymph # (Auto) 200 L [place] # (Auto) 100 Eos # (Auto) 0 Baso # (Auto) 0 PT 20.4 H D INR 1.8 H Sodium 131 L Potassium 4.4 Chloride 104 Carbon Dioxide 21 L BUN 30 H Creatinine 0.79 Estimated GFR > 60 BUN/Creatinine Ratio 38.0 H Glucose 129 H Lactate 2.5 H 3.3 H Calcium 8.0 L Magnesium Procalcitonin Urine Color Urine Appearance Urine pH Ur Specific [place] Urine Protein Urine Glucose (UA) Urine Ketones Urine Occult Blood Urine Nitrate Urine Bilirubin Urine Urobilinogen Ur Leukocyte Esterase Urine RBC Urine WBC Ur Squamous Epith Cells Urine Bacteria Ur Culture Indicated? Assessment & Plan Assessment and plan (1) Closed compression fracture of thoracic vertebra: Status: Acute (2) Hyponatremia: Status: Acute (3) Diverticulitis of colon with perforation: Status: Acute (4) Atrial fibrillation with RVR: Status: Acute (5) Acute metabolic encephalopathy: Status: Acute Plan continue to monitor mental status MRI brain eeg supplemental 02 as needed TTE amio g tt NPO trend labs monitor UO empric abx f/u cx she is DNR/I, but I would have further GOc discussions with , she remains at high risk for decompensation, additionally nutrition will become an issue soon, and tpn could complicate things further if we cannot advance her diet Critical care time 35 min
[2023-07-14] MEDS: AMIODARONE 360 MG/200 ML PIGGYBACK 16.7 MG IV (14:59)
--- NOTE | 2023-07-14 15:07 | P.PN_ITS ---
Subjective Subjective Date Patient Seen: 07/14/23 Time Patient Seen: 08:00 Interval history: Upon arriving, patient was noted to be tachycardic in the 130s-140s, MAP 65. She had received IV metoprolol and IV fluid boluses overnight with no effect. She was in atrial fibrillation on tele. She was confused when I saw her and could not provider any history or described her symptoms. When I pressed on her belly she moaned. Exam Vital Signs (past 8 hours): - 07/14/23 07:08 07/14/23 07:08 07/14/23 07:30 Pulse Rate 136 H 129 H Respiratory Rate 22 Blood Pressure 103/55 L Pulse Oximetry 99 97 Oxygen Delivery Method 07/14/23 07:30 07/14/23 08:00 07/14/23 08:00 Pulse Rate 143 H Respiratory Rate 24 Blood Pressure 90/51 L 96/69 Pulse Oximetry 98 Oxygen Delivery Method 07/14/23 08:01 07/14/23 08:01 07/14/23 08:07 Pulse Rate 135 H Respiratory Rate 23 Blood Pressure 114/56 L 93/54 L Pulse Oximetry 98 Oxygen Delivery Method 07/14/23 08:07 07/14/23 08:30 07/14/23 08:30 Pulse Rate 133 H 140 H Respiratory Rate 23 23 Blood Pressure 93/52 L Pulse Oximetry 98 98 Oxygen Delivery Method 07/14/23 08:43 07/14/23 08:43 07/14/23 08:46 Pulse Rate 126 H Respiratory Rate 24 Blood Pressure 72/42 L 76/47 L Pulse Oximetry 98 Oxygen Delivery Method 07/14/23 08:46 07/14/23 08:51 07/14/23 08:51 Pulse Rate 120 H 123 H Respiratory Rate 24 23 Blood Pressure 87/50 L Pulse Oximetry 98 97 Oxygen Delivery Method 07/14/23 08:55 07/14/23 08:55 07/14/23 09:00 Pulse Rate 115 H Respiratory Rate 23 Blood Pressure 91/53 L 101/59 L Pulse Oximetry 98 Oxygen Delivery Method 07/14/23 09:00 07/14/23 09:00 07/14/23 09:16 Pulse Rate 116 H Respiratory Rate 23 Blood Pressure 124/59 L Pulse Oximetry 98 Oxygen Delivery Method Room Air 07/14/23 09:16 07/14/23 09:26 07/14/23 09:26 Pulse Rate 116 H 124 H Respiratory Rate 23 22 Blood Pressure 134/98 H Pulse Oximetry 98 99 Oxygen Delivery Method 07/14/23 09:30 07/14/23 09:32 07/14/23 09:32 Pulse Rate 128 H 132 H Respiratory Rate 21 22 Blood Pressure 98/48 L Pulse Oximetry 98 97 Oxygen Delivery Method 07/14/23 09:40 07/14/23 09:40 07/14/23 09:49 Pulse Rate 132 H Respiratory Rate 21 Blood Pressure 107/54 L 100/52 L Pulse Oximetry 97 Oxygen Delivery Method 07/14/23 09:49 07/14/23 10:00 07/14/23 10:00 Pulse Rate 120 H 123 H Respiratory Rate 17 21 Blood Pressure 117/56 L Pulse Oximetry 98 98 Oxygen Delivery Method 07/14/23 10:30 07/14/23 10:31 07/14/23 10:31 Pulse Rate 122 H 122 H Respiratory Rate 22 22 Blood Pressure 128/57 L Pulse Oximetry 98 97 Oxygen Delivery Method 07/14/23 10:49 07/14/23 10:49 07/14/23 11:00 Pulse Rate 121 H Respiratory Rate 21 Blood Pressure 129/60 131/62 Pulse Oximetry 98 Oxygen Delivery Method 07/14/23 11:00 07/14/23 11:30 07/14/23 11:30 Pulse Rate 125 H 126 H Respiratory Rate 22 21 Blood Pressure 135/62 Pulse Oximetry 98 97 Oxygen Delivery Method 07/14/23 12:00 07/14/23 12:01 07/14/23 12:01 Pulse Rate 142 H 143 H Respiratory Rate 19 22 Blood Pressure 103/58 L Pulse Oximetry 95 96 Oxygen Delivery Method 07/14/23 12:30 07/14/23 12:30 07/14/23 13:00 Pulse Rate 128 H 125 H Respiratory Rate 21 16 Blood Pressure 115/66 Pulse Oximetry 96 96 Oxygen Delivery Method 07/14/23 13:00 07/14/23 13:00 07/14/23 13:30 Pulse Rate 137 H Respiratory Rate 26 H Blood Pressure 132/62 Pulse Oximetry 97 Oxygen Delivery Method Room Air 07/14/23 13:31 07/14/23 13:31 07/14/23 13:59 Pulse Rate 132 H Respiratory Rate 26 H Blood Pressure 132/88 128/57 L Pulse Oximetry 98 Oxygen Delivery Method 07/14/23 13:59 07/14/23 14:00 07/14/23 14:01 Pulse Rate 128 H 123 H Respiratory Rate 19 21 Blood Pressure 104/57 L Pulse Oximetry 96 97 Oxygen Delivery Method 07/14/23 14:01 07/14/23 14:30 07/14/23 14:30 Pulse Rate 127 H 120 H Respiratory Rate 18 16 Blood Pressure 109/56 L Pulse Oximetry 96 96 Oxygen Delivery Method 07/14/23 15:00 07/14/23 15:00 Pulse Rate 116 H Respiratory Rate 24 Blood Pressure 114/65 Pulse Oximetry 98 Oxygen Delivery Method Oxygen Delivery Method Room Air Oxygen Flow Rate 0 Narrative Exam Narrative: GEN: ill appearing, confused, somnolent CV: irregular tachycardic PULM: clear bilaterally ABD: soft, tender to palpation Objective Labs 07/14/23 04:58 07/14/23 04:58 Labs: Laboratory Results - last 24 hr 07/13/23 07/13/23 07/13/23 10:37 11:00 16:20 WBC RBC Hgb Hct MCV MCH MCHC RDW Plt Count Neut % (Auto) Lymph % (Auto) [place] % (Auto) Eos % (Auto) Baso % (Auto) Neut # (Auto) Lymph # (Auto) [place] # (Auto) Eos # (Auto) Baso # (Auto) PT 47.2 H D INR 4.1 H Sodium 129 L Potassium 4.7 Chloride 96 L Carbon Dioxide 25 BUN 34 H Creatinine 0.66 Estimated GFR > 60 BUN/Creatinine Ratio 51.5 H Glucose 151 H Lactate 3.8 H 2.9 H Calcium 9.0 Magnesium 2.3 Procalcitonin 0.34 Urine Color Urine Appearance Urine pH Ur Specific [place] Urine Protein Urine Glucose (UA) Urine Ketones Urine Occult Blood Urine Nitrate Urine Bilirubin Urine Urobilinogen Ur Leukocyte Esterase Urine RBC Urine WBC Ur Squamous Epith Cells Urine Bacteria Ur Culture Indicated? 07/13/23 07/13/23 07/13/23 17:41 18:05 19:55 WBC RBC Hgb Hct MCV MCH MCHC RDW Plt Count Neut % (Auto) Lymph % (Auto) [place] % (Auto) Eos % (Auto) Baso % (Auto) Neut # (Auto) Lymph # (Auto) [place] # (Auto) Eos # (Auto) Baso # (Auto) PT INR Sodium Potassium Chloride Carbon Dioxide BUN Creatinine Estimated GFR BUN/Creatinine Ratio Glucose Lactate 3.1 H 2.8 H Calcium Magnesium Procalcitonin Urine Color Yellow Urine Appearance Sl cloudy Urine pH 5.0 Ur Specific [place] 1.025 Urine Protein Negative Urine Glucose (UA) Negative Urine Ketones Negative Urine Occult Blood Trace-intact Urine Nitrate Negative Urine Bilirubin Negative Urine Urobilinogen 0.2 Ur Leukocyte Esterase Negative Urine RBC 0-1/hpf Urine WBC 1-5/hpf Ur Squamous Epith Cells None seen Urine Bacteria Many (>30) H Ur Culture Indicated? Specimen cultured 07/14/23 07/14/23 07/14/23 04:58 08:13 11:14 WBC 6.1 RBC 3.88 L Hgb 12.6 Hct 37.2 MCV 96.1 MCH 32.4 MCHC 33.7 RDW 14.3 Plt Count 83 L Neut % (Auto) 95.8 H Lymph % (Auto) 2.5 L [place] % (Auto) 1.6 L Eos % (Auto) 0.1 L Baso % (Auto) 0.0 Neut # (Auto) 5800 Lymph # (Auto) 200 L [place] # (Auto) 100 Eos # (Auto) 0 Baso # (Auto) 0 PT 20.4 H D INR 1.8 H Sodium 131 L Potassium 4.4 Chloride 104 Carbon Dioxide 21 L BUN 30 H Creatinine 0.79 Estimated GFR > 60 BUN/Creatinine Ratio 38.0 H Glucose 129 H Lactate 2.5 H 3.3 H Calcium 8.0 L Magnesium Procalcitonin Urine Color Urine Appearance Urine pH Ur Specific [place] Urine Protein Urine Glucose (UA) Urine Ketones Urine Occult Blood Urine Nitrate Urine Bilirubin Urine Urobilinogen Ur Leukocyte Esterase Urine RBC Urine WBC Ur Squamous Epith Cells Urine Bacteria Ur Culture Indicated? [facility] Social History household members: spouse Smoking Status: Former smoker alcohol intake: current Assessment & Plan Assessment & Plan narrative: 1. Acute perforated diverticulitis with septic shock -initially admitted on 07/[address] showed air from perforated diverticulitis -on antibiotics with Zosyn -surgery consulted, agree with their assessment that patient is a poor surgical candidate -on am 07/14 was persistently tachcyardic and hypotensive after multiple boluses of fluid -PICC placed -started levophed for map goal >65 -follow up urine culture, order blood cultures now, but has already been on antibiotics 2. Atrial fibrillation with RVR -did not respond to fluids or IV metoprolol -given hypotension start amiodarone gtt 3. Metastatic breasn cancer with mets to spine -followed by Oncology of and currently receiving radiation, has undergone 4 rounds so far -has not yet started chemotherapy -holding dexamethasone and prednisone taper due to active infection 4. Back pain due to metastatic compression fracture of t5-t6 -pain control -neurochecks q4 as able -PT/OT if patient improves 5. Acute encephalopathy -likely from infection, possibly from withdrawal -treat infection as above -ordered high dose thiamine -MRI brain if she improves to evaluate for mets, but currently too unstable for imaging 6. Hyponatremia -secondary to hypovolemia -improving 7. Alcohol use -concern that she has component of withdrawal -placed on ciwa protocol -ordered ativan per ciwa protocol Patient is critically ill. Prognosis is poor. Discussed with spouse at bedside that she is high risk of not surviving this infection due to underlying disease.
--- NOTE | 2023-07-14 15:13 | CM.DANOTE ---
Patient is a 78 yo female who was admitted on 07/13/23 for GLF. Pt has REG MCR ADV for insurance and her PCP is at [facility]. EMR was reviewed. Per MD, pt with recent dx of breast CA with mets and getting radiation at [facility] and daily ETOH. Pt admitted with acute perforated diverticulitis. Per Surgeon, pt not a surgical candidate at this time and will plan on conservative tx of IV-Abx for her sepsis. Per RN, pt in ICU due to her ongoing AFIB with RVR. MD attempted Goals of Care discussion with pt and spouse bedside but did not appear that pt or spouse seemed to fully understand pt's medical status and needs. SW met bedside with pt and spouse and explained role and accompanied by pt's RN as pt was making statements about wanting to leave the hospital now. Pt somewhat confused, likely due to her infection and risk for ETOH w/d as well as her cancer with mets. Per pt and spouse, pt has been independent with ADLs prior to admission and she ambulates indep and drives herself to her [facility] radiation appointments. Pt and spouse deny any hx of SNF and no other local family support. Pt had difficulty remembering or realizing she has only been in the hospital for one night and states it feels like forever. Pt stating she just wants to go home but did not seem to fully understand if she left AMA without the medications she would likely . SW discussed possible option of Hospice if pt was no longer wanting medical tx or to be in the hospital but she declined Hospice stating I'm not dying right now. Unclear if spouse had a full understanding of pt's medical situation but he was able to express that he felt pt should remain in the hospital for at least another night for treatment to see if pt improves and has a clearer cognition tomorrow. Copy of pt's DPOA and health care directive scanned into EMR and spouse is pt's DPOA. Pt and spouse also have an apt in [place] where they stay when they go down for Radiation at [facility] each week. PT/OT ordered and pending for when pt more medically appropriate. Plan: SW to follow closely tomorrow for further bedside assessment to try to melissa pt and spouse's cognition and discharge planning discussion and possible further Goals of Care. TOVA Robbins Discharge Planning/Care Management CM Discharge Assessment Start: 07/14/23 15:11 Freq: Status: Active Protocol: Document 07/14/23 15:11 BF (Rec: 07/14/23 15:13 BF [id number]) Discharge Planning Assessment Assigned Fly Worker TOVA Webster/Assigned Designee Name spouse Fox Contact Information [phone] Advance Directives? Yes: Living Will Declaration, Durable Power of deputy county attorney Advance Directives on File Yes History Provided By Patient,Significant Other, Medical Record Has Patient been admitted in last 30 No days? Prior Living Arrangements House Household Members spouse Type of transporation used prior to Drives own vehicle admit Independent with ADL's Yes Is patient alert and oriented? Yes Needs Assistance With Home Chores / Shopping Caregiver for Another No Comment Pending pt's progress and needs, PT/OT ordered and pending Barriers to Discharge No Discharge Plan Home with Home Health Transportation Arrangement Spouse bedside and hopeful for home Additional Comment Pending progress and needs, PT /OT pending Whiteboard Updated in Patient Room with Yes name and ext. # of Fly Worker Review Status In Process Please Provide Date Initial DC 07/14/23 Assessment Was Performed Next Review Type Continued Stay Review
--- NOTE | 2023-07-14 16:26 | PC.NURSE ---
Day shift: Pt hypotensive at start of shift, HR 130's-140's, O2 96% on RA. Pt expressing anxiety, stating, I just want to get out of here. I've been here for days. Pt A&O to self, situation, unsure of dates, severity of illness. Provider at bedside. Norepinephrine and amiodarone started as ordered (See MAR). BP stable, HR 110's. at bedside. Provider discussed plan of care with pt and . appears unsure of plan, uncertain of severity of pt's illness. Asked if he should contact pt's outpt oncology team in [place]. out at nurse's station telling this RN pt wants to leave, that he needs help assisting her to stand. reeducated on severity of pt illness, the risks involved if pt were to leave AMA. Care management at bedside assisting in reeducation of severity of illness and next steps. Pt restless, agitated, CIWA 12. Lorazepam administered per CIWA protocol (See MAR). Pt holding 's hand, states she will stay. Pt resting comfortably, BP stable, HR 110's, O2 99% on RA. Seizure pads placed, suction set up by bed. Care ongoing. Will continue to monitor.
--- NOTE | 2023-07-14 18:56 | PM.ICURNDS ---
- :: This patient was seen via real time interactive two-way audiovisual telecommunication. Note: Pt comfortable in bed, levo at 0.04 mcg/kg/min, MAP 70, on amiodaron drip HR 100s, on RA sat 90s. Continue current mgt.
[2023-07-14] MEDS: METOPROLOL IR 25 MG TABLET PO (20:40)
[2023-07-15] VITALS (71 sets, daily range): BP systolic 71–160; BP diastolic 42–88; PULSE 84–120; RESP 15–27; TEMP 36–38.2; O2SAT 95–100
[2023-07-15] MEDS: NOREPINEPHRINE BITARTRATE/D5W 4 MG/250 ML PLAST..BAG 53.58 MG IV (00:20)
[2023-07-15] MEDS: AMIODARONE 180 MG/100 ML PIGGYBACK 16.7 MG IV (02:26)
[2023-07-15] MEDS: LORazepam 2 MG/ML INJ IV (04:14)
[2023-07-15 05:19] LABS: Hematocrit 31.8 % (36-46); Hemoglobin 10.7 g/dL (12.0-16.0); Mean Corpuscular HGB Conc 33.6 % (30-36); Mean Corpuscular Hemoglobin 32.8 PG (26-34); Mean Corpuscular Volume 97.7 fL (80-100); Platelet Count 79 X10^3/uL (150-400); Red Blood Cell Count 3.26 X10^6/uL (4.0-5.2); Red Cell Distribution Width 14.2 % (11.6-14.8); White Blood Cell Count 7.2 X10^3/uL (4.5-11.0)
[2023-07-15 05:31] LABS: INR 1.5 (0.9-1.3); Prothrombin Time 17.4 SECONDS (10.1-12.7)
[2023-07-15 05:43] LABS: BUN Creatinine Ratio 25.6 (6-22); Blood Urea Nitrogen 23 mg/dL (7-17); Calcium 7.9 mg/dL (8.4-10.2); Carbon Dioxide 23 mmol/L (22-32); Chloride 103 mmol/L (98-107); Estimated Glomerular Filt Rate > 60 mL/min (>60); Glucose 182 mg/dL (80-110); HEMOLYSIS < 15 (0-50); Potassium 3.5 mmol/L (3.4-5.1); Sodium 131 mmol/L (137-145)
[2023-07-15] MEDS: NOREPINEPHRINE BITARTRATE/D5W 4 MG/250 ML PLAST..BAG 35.72 MG IV ×2 (06:01→12:26)
--- NOTE | 2023-07-15 06:44 | PC.NURSE ---
Addendum entered by Mary Arenas R.N. 07/15/23 06:54: As preceptor, I agree with Abhinav RNs assessments, interventions, evaluations, and documentations. Original Note: Sepsis BC drawn @0. @[address] Araiza, Pt given 2x 1mg doses of Ativan @2100 & 2200 for CIWA scores 11 and 10, agitation to include pulling at TELE, Chicas, and PICC lines. Due to Metoprolol PO @2100, and both Ativan doses, pt req'd increased NorEpi from 0.05mcg, to 0.06, then 0.07mcg to keep SBP >90. Requested order for restraints for continued pt safety after exhausting alternative interventions. Cardiac fx stable w/ Amiodarone 16.7L/hr; AFIB RVR . NorEpi titrated up to 0.15mcg for SBP >90, then back down to 0.10mcg @0420 2mg Ativan given for CIWA 11. PICC dsg compromised, needs redressing.
[2023-07-15] MEDS: PIPERACILLIN/TAZO 3.375 GM in SODIUM CHLORIDE 0.9% 100 ML IV ×2 (08:32→15:31)
[2023-07-15] MEDS: dexmedeTOMIDine in 0.9 % NaCL 400 MCG/100 ML PLAST..BAG IV (08:32)
[2023-07-15] MEDS: THIAMINE 500 MG in SODIUM CHLORIDE 0.9% 100 ML 420 MG IV ×3 (09:30→20:39)
--- NOTE | 2023-07-15 09:44 | P.TELICUPN_ITS ---
Subjective Subjective IF CAMERA ACTIVATED, patient seen via real-time interactive audiovisual communication: Camera activated Consent obtained for tele-appraisal technician care: Yes Patient Location: ICU Provider location (State): [place] Other participants/roles: RN, Hospitalist, Pharmacist Interval history: The encounter was completed by 2-way audio visual interaction. Briefly, an 80 years old female, with history of hypertension, anemia, fallopian tube carcinoma, initially admitted to ICU on ventilator post op after ex lap and lysis of hydration, extubated on 07/14/2023, course complicated by A-fib with RVR requiring Cardizem drip, and pulmonary edema requiring diuresis. Medical chart reviewed in detail.? Interval history and overnight events discussed with bedside RN. Most recent labs/imaging studies reviewed. WBC trending up, 22.5 this AM.? Hemoglobin 11.2, platelet count 172. Creatinine improved, down to 1.63.? BUN elevated at 58, EGFR 31.? Glucose 174.? Uptrending LFTs with AST 96, ALT 82.? Serum albumin 2.9. ? MRSA screen positive.? SARS-CoV-2 PCR negative. Chest x-ray on 07/15/2023 with worsening diffuse airspace opacities, concerning for pulm edema versus pneumonia. TTE with LVEF 70 to 75% with no focal wall motion abnormalities.? Diastolic function could not be assessed.? RV size normal. Currently on Precedex gtt.? On Cardizem drip For A-fib with RVR, heart rate is currently controlled. Diuresing well with urine output 6100 cc over 24 hours, with net negative -3 L. Remains on BiPAP.?noted to be in severe respiratory distress, increased WOB (RR >40/min), using accessory muscles of respiration. D/w patient and nursing staff. Patient would like to stay full-code and need to be re-intubated at this point. D/w Anaesthesia marketing content coordinator and requested her to intubate the patient. Current Medications Current Medications Medications: Home Medications CYANOCOBALAMIN (VITAMIN B-12) (Vitamin B-12) 1 tab PO Q DAY ##0 02/03/12 [History Confirmed 07/13/23] VITAMIN D 3,000 iu PO QDAY ##0 02/03/12 [History Confirmed 07/13/23] bumetanide 1 mg tablet 1 mg PO SEEINSTR 07/13/23 [History Confirmed 07/13/23] dexamethasone 1 mg tablet 1 mg PO SEEINSTR 07/13/23 [History Confirmed 07/13/23] dexamethasone 2 mg tablet 2 mg PO SEEINSTR 07/13/23 [History Confirmed 07/13/23] ketoconazole 2 % topical cream 1 applic topical BID 07/13/23 [History Confirmed 07/13/23] losartan 50 mg tablet 50 mg PO DAILY 07/13/23 [History Confirmed 07/13/23] metoprolol tartrate 25 mg tablet 25 mg PO BID 07/13/23 [History Confirmed 07/13/23] potassium chloride 20 mEq tablet,extended release 20 meq PO BID 07/13/23 [History Confirmed 07/13/23] prednisone 1 mg tablet 2 mg PO DAILY 07/13/23 [History Confirmed 07/13/23] prednisone 5 mg tablet 5 mg PO SEEINSTR 07/13/23 [History Confirmed 07/13/23] simvastatin 20 mg tablet 20 mg PO ONCE PM 07/13/23 [History Confirmed 07/13/23] warfarin 5 mg tablet 5 mg PO SEEINSTR 07/13/23 [History Confirmed 07/13/23] Visit Medications (administered) Generic Name Dose Route Start Last Admin Trade Name Khang PRN Reason Stop Dose Admin Folic Acid 1 mg 07/14/23 09:00 07/15/23 08:54 Folic Acid 1 Mg Tablet PO Not Given DAILY BERT Hydromorphone HCl 0.5 mg 07/13/23 16:00 07/14/23 23:20 Hydromorphone 0.5 Mg Inj IV 0.5 mg Q3H PRN Administration Pain, Moderate (4-6) Piperacillin Sod/Tazobactam 100 mls @ 25 mls/hr 07/13/23 16:15 07/15/23 08:32 Sod 3.375 gm/ Sodium Chloride IV 25 mls/hr Q8H BERT Administration NOREPINEPHRINE BITARTRATE/D5W 4 mg in 250 mls @ 35.72 mls/hr 07/14/23 08:13 07/15/23 06:01 Levophed IV 0.1 mcg/kg/min TITRATE BERT 35.72 mls/hr Administration Protocol 0.1 MCG/KG/MIN Thiamine HCl 500 mg/ Sodium 105 mls @ 420 mls/hr 07/14/23 09:45 07/14/23 22:42 Chloride IV Infused TID BERT Infusion dexmedeTOMIDine in 0.9 % NaCL 400 mcg in 100 mls @ 4.7 mls/hr 07/15/23 08:15 07/15/23 08:32 Precedex IV 0.2 mcg/kg/hr TITRATE BERT 4.7 mls/hr Administration Protocol 0.2 MCG/KG/HR Lorazepam 0 mg 07/14/23 07:58 07/15/23 04:14 Lorazepam 2 Mg/Ml Inj IV 2 mg CIWAPRN PRN Administration Alcohol Withdrawal Protocol Metoprolol Tartrate 25 mg 07/13/23 15:35 07/15/23 08:54 Metoprolol Ir 25 Mg Tablet PO Not Given BID BERT Multivitamins 1 tab 07/14/23 09:00 07/15/23 08:54 Multivitamin 1 Tablet PO Not Given DAILY BERT Oxycodone HCl 5 mg 07/13/23 15:29 07/14/23 02:00 Oxycodone Ir 5 Mg Tablet PO 5 mg Q3HR PRN Administration Pain, Moderate (4-6) Objective Labs 07/15/23 05:00 07/15/23 05:00 Labs: Laboratory Results - last 24 hr 07/14/23 07/15/23 11:14 05:00 WBC 7.2 RBC 3.26 L Hgb 10.7 L Hct 31.8 L MCV 97.7 MCH 32.8 MCHC 33.6 RDW 14.2 Plt Count 79 L PT 17.4 H INR 1.5 H Sodium 131 L Potassium 3.5 Chloride 103 Carbon Dioxide 23 BUN 23 H Creatinine 0.90 Estimated GFR > 60 BUN/Creatinine Ratio 25.6 H Glucose 182 H Lactate 3.3 H Calcium 7.9 L Exam Vital Signs (past 8 hours): - 07/15/23 02:00 07/15/23 02:00 07/15/23 02:29 Temperature Pulse Rate 109 H 108 H Respiratory Rate 16 16 Blood Pressure 104/55 L Pulse Oximetry 96 97 Oxygen Flow Rate 07/15/23 02:30 07/15/23 02:30 07/15/23 03:00 Temperature Pulse Rate 108 H Respiratory Rate 16 Blood Pressure 110/58 L 108/52 L Pulse Oximetry 97 Oxygen Flow Rate 07/15/23 03:00 07/15/23 03:02 07/15/23 03:30 Temperature Pulse Rate 106 H 106 H Respiratory Rate 17 17 Blood Pressure 116/57 L Pulse Oximetry 97 97 Oxygen Flow Rate 07/15/23 03:30 07/15/23 04:00 07/15/23 04:00 Temperature 99.8 F H Pulse Rate 104 H 120 H Respiratory Rate 18 27 H Blood Pressure 129/60 Pulse Oximetry 97 98 Oxygen Flow Rate 07/15/23 04:17 07/15/23 04:31 07/15/23 04:31 Temperature Pulse Rate 111 H 113 H Respiratory Rate 18 18 Blood Pressure 93/52 L Pulse Oximetry 98 97 Oxygen Flow Rate 07/15/23 04:45 07/15/23 05:00 07/15/23 05:00 Temperature 98.4 F Pulse Rate 112 H 102 H Respiratory Rate 19 18 Blood Pressure 93/52 L 118/63 91/50 L Pulse Oximetry 95 Oxygen Flow Rate 0 07/15/23 05:00 07/15/23 05:12 07/15/23 05:12 Temperature Pulse Rate 106 H 110 H Respiratory Rate 17 17 Blood Pressure 84/50 L Pulse Oximetry 97 97 Oxygen Flow Rate 07/15/23 05:30 07/15/23 05:30 07/15/23 05:53 Temperature Pulse Rate 103 H 103 H Respiratory Rate 16 18 Blood Pressure 91/55 L Pulse Oximetry 97 98 Oxygen Flow Rate 07/15/23 06:00 07/15/23 06:00 07/15/23 06:30 Temperature Pulse Rate 108 H Respiratory Rate 19 Blood Pressure 95/54 L 108/56 L Pulse Oximetry 98 Oxygen Flow Rate 07/15/23 06:30 07/15/23 07:00 07/15/23 07:00 Temperature Pulse Rate 112 H 112 H Respiratory Rate 22 22 Blood Pressure 126/59 L Pulse Oximetry 99 99 Oxygen Flow Rate 07/15/23 07:30 07/15/23 07:32 07/15/23 07:32 Temperature Pulse Rate 115 H 113 H Respiratory Rate 23 22 Blood Pressure 115/88 Pulse Oximetry 98 100 Oxygen Flow Rate 07/15/23 08:00 07/15/23 08:01 07/15/23 08:01 Temperature 96.8 F L Pulse Rate 117 H 118 H Respiratory Rate 24 25 H Blood Pressure 111/53 L Pulse Oximetry 99 99 Oxygen Flow Rate 07/15/23 08:30 07/15/23 08:30 Temperature Pulse Rate 118 H Respiratory Rate 26 H Blood Pressure 113/61 Pulse Oximetry 100 Oxygen Flow Rate Oxygen Delivery Method Room Air Oxygen Flow Rate 0 Narrative Exam Narrative: Remains on BiPAP.?noted to be in severe respiratory distress, increased WOB (RR >40/min), using accessory muscles of respiration. Quality TeleICU Stress Ulcer Stress ulcer prophylaxis: yes and on full treatment dose Assessment & Plan Assessment & Plan narrative: AASSESSMENT/PLAN: # SBO / S/p exploratory laparotomy and lysis of adhesions. POD#2 - Overall doing well from a surgical standpoint. - Defer primary management to the surgery team. ? - Remains NPO.? Started on TPN # Acute hypoxic respiratory failure / Pneumonia: - Likely the setting of pulmonary edema and suspected pneumonia, especially given uptrending WBC of 22.2 this AM. - Chest x-ray this a.m. with pulmonary edema and right lower lobe infiltrate concerning for pneumonia. - Continue diuresis with Lasix 40 mg IV twice daily, goal to keep net negative fluid balance at least -1 L/day. - On multiple antibiotic antibiotics including ceftriaxone, Flagyl, IV vancomycin and azithromycin to cover for pneumonia. Recommend to switch to Zosyn and stop Ceftriaone/Flagyl. - Remains on BiPAP.?noted to be in severe respiratory distress, increased WOB (RR >40/min), using accessory muscles of respiration. D/w patient and nursing staff. Patient would like to stay full-code and need to be re-intubated at this point. D/w Anaesthesia marketing content coordinator and requested her to urgently intubate the patient. - Once intubated, start patient on Propofol gtt and Fentanyl gtt, RAAS goal 0 to -2. - C/w vent support per lung protective strategy (TV 6ml/kg by IBW, plat pressure < 30, PaO2 60-80 mm Hg, SaO2 > 90%) and c/w ABCDE bundle while intubated. # Atrial fibrillation with RVR: - Heart rate currently controlled on Cardizem drip.? Wean Cardizem drip with the goal to maintain heart rate <120/min. - If becomes hypotensive (after sedation), may need to switch her to Amiodarone gtt. - TTE with LVEF 70 to 75% with no focal wall motion abnormalities.? Diastolic function could not be assessed.? RV size normal. # Acute kidney injury: - Most likely the setting of fluid overload. ? - Renal function is actually improving with diuresis.? Creatinine is now down to 1.6. - Monitor renal functions with serial BMP, strict input and output. - Avoid nephrotoxic medications. ICU BUNDLE: # FEN: Keep her NPO since needs to be reintubated. # Glucose: fairly controlled. C/w Accu checks Q6 hours and SSI. BG goal 140-180 # Prophylaxis: On heparin subcu for DVT prophylaxis, Start Pepcid for stress ulcer prophylaxis # Lines/tubes: PIV, Chicas, PICC # CODE STATUS: Was initially DNR but now reversed to full code. # Disposition: Remains in ICU Above plan was discussed with a rounding team including bedside RN, respiratory therapist, dietitian and pharmacist during tele-ICU multidisciplinary rounds this morning.? We will continue to follow.? Please call us if you have any additional questions.
--- NOTE | 2023-07-15 10:17 | PT-IP ANOTE ---
Per AM rounds, the pt is not medically stable/appropriate for therapy services at this time. PT will discharge PT orders; consult PT as needed.
--- NOTE | 2023-07-15 10:36 | PM.PN.EICU ---
Subjective Subjective IF CAMERA ACTIVATED, patient seen via real-time interactive audiovisual communication: Camera activated Consent obtained for tele-facility operations manager care: Yes Patient Location: ICU Provider location (State): [place] Other participants/roles: Hospitalist, RN, pharmacist Interval history: The encounter was completed by 2-way audio visual interaction. Briefly, a 78 years old female with a history of breast cancer, transferred to ICU for fibrillation with RVR, course complicated by acute perforated diverticulitis resulting in septic shock, and acute metabolic encephalopathy. Medical chart reviewed in detail.? Interval history and overnight events discussed with bedside RN. Most recent labs/imaging studies reviewed. ? Labs were notable for hemoglobin 10.7, platelet count 79.? INR 1.5 serum sodium 131, BUN 23, creatinine 0.90, blood glucose 182, K3.3, calcium 7.9. CT chest/abdomen/pelvis with contrast 07/13/2023 with perforated diverticulitis, possible metastatic disease of the T6 vertebral body, soft tissue extension into the spinal canal causing mild narrowing, and age-indeterminate compression deformity identified vertebral body.? Pathological fracture suspected.? Chest x-ray from 07/14 with PICC line projecting in upper SVC.? CTH without contrast is negative for acute intracranial pathology. The patient remains encephalopathic, doesn't follow commands, suspected to have ETOH withdrawal protocol. Just started on Precedex gtt per hospitalist since not tolerating ativan per RN (having episodes of hypotension with Ativan). Still requiring norepinephrine gtt., currently at 0.04 mcg/kg/min. Remains on amiodarone gtt. for A-fib with RVR with heart rate controlled. Current Medications Current Medications Medications: Home Medications CYANOCOBALAMIN (VITAMIN B-12) (Vitamin B-12) 1 tab PO Q DAY ##0 02/03/12 [History Confirmed 07/13/23] VITAMIN D 3,000 iu PO QDAY ##0 02/03/12 [History Confirmed 07/13/23] bumetanide 1 mg tablet 1 mg PO SEEINSTR 07/13/23 [History Confirmed 07/13/23] dexamethasone 1 mg tablet 1 mg PO SEEINSTR 07/13/23 [History Confirmed 07/13/23] dexamethasone 2 mg tablet 2 mg PO SEEINSTR 07/13/23 [History Confirmed 07/13/23] ketoconazole 2 % topical cream 1 applic topical BID 07/13/23 [History Confirmed 07/13/23] losartan 50 mg tablet 50 mg PO DAILY 07/13/23 [History Confirmed 07/13/23] metoprolol tartrate 25 mg tablet 25 mg PO BID 07/13/23 [History Confirmed 07/13/23] potassium chloride 20 mEq tablet,extended release 20 meq PO BID 07/13/23 [History Confirmed 07/13/23] prednisone 1 mg tablet 2 mg PO DAILY 07/13/23 [History Confirmed 07/13/23] prednisone 5 mg tablet 5 mg PO SEEINSTR 07/13/23 [History Confirmed 07/13/23] simvastatin 20 mg tablet 20 mg PO ONCE PM 07/13/23 [History Confirmed 07/13/23] warfarin 5 mg tablet 5 mg PO SEEINSTR 07/13/23 [History Confirmed 07/13/23] Visit Medications (administered) Generic Name Dose Route Start Last Admin Trade Name Freq PRN Reason Stop Dose Admin Folic Acid 1 mg 07/14/23 09:00 07/15/23 08:54 Folic Acid 1 Mg Tablet PO Not Given DAILY BERT Hydromorphone HCl 0.5 mg 07/13/23 16:00 07/14/23 23:20 Hydromorphone 0.5 Mg Inj IV 0.5 mg Q3H PRN Administration Pain, Moderate (4-6) Piperacillin Sod/Tazobactam 100 mls @ 25 mls/hr 07/13/23 16:15 07/15/23 08:32 Sod 3.375 gm/ Sodium Chloride IV 25 mls/hr Q8H BERT Administration NOREPINEPHRINE BITARTRATE/D5W 4 mg in 250 mls @ 35.72 mls/hr 07/14/23 08:13 07/15/23 06:01 Levophed IV 0.1 mcg/kg/min TITRATE BERT 35.72 mls/hr Administration Protocol 0.1 MCG/KG/MIN Thiamine HCl 500 mg/ Sodium 105 mls @ 420 mls/hr 07/14/23 09:45 07/14/23 22:42 Chloride IV Infused TID BERT Infusion dexmedeTOMIDine in 0.9 % NaCL 400 mcg in 100 mls @ 4.7 mls/hr 07/15/23 08:15 07/15/23 08:32 Precedex IV 0.2 mcg/kg/hr TITRATE BERT 4.7 mls/hr Administration Protocol 0.2 MCG/KG/HR Lorazepam 0 mg 07/14/23 07:58 07/15/23 04:14 Lorazepam 2 Mg/Ml Inj IV 2 mg CIWAPRN PRN Administration Alcohol Withdrawal Protocol Metoprolol Tartrate 25 mg 07/13/23 15:35 07/15/23 08:54 Metoprolol Ir 25 Mg Tablet PO Not Given BID BERT Multivitamins 1 tab 07/14/23 09:00 07/15/23 08:54 Multivitamin 1 Tablet PO Not Given DAILY BERT Oxycodone HCl 5 mg 07/13/23 15:29 07/14/23 02:00 Oxycodone Ir 5 Mg Tablet PO 5 mg Q3HR PRN Administration Pain, Moderate (4-6) Objective Labs 07/15/23 05:00 07/15/23 05:00 Labs: Laboratory Results - last 24 hr 07/14/23 07/15/23 11:14 05:00 WBC 7.2 RBC 3.26 L Hgb 10.7 L Hct 31.8 L MCV 97.7 MCH 32.8 MCHC 33.6 RDW 14.2 Plt Count 79 L PT 17.4 H INR 1.5 H Sodium 131 L Potassium 3.5 Chloride 103 Carbon Dioxide 23 BUN 23 H Creatinine 0.90 Estimated GFR > 60 BUN/Creatinine Ratio 25.6 H Glucose 182 H Lactate 3.3 H Calcium 7.9 L Exam Vital Signs (past 8 hours): - 07/15/23 03:00 07/15/23 03:00 07/15/23 03:02 Temperature Pulse Rate 106 H 106 H Respiratory Rate 17 17 Blood Pressure 108/52 L Pulse Oximetry 97 97 Oxygen Flow Rate 07/15/23 03:30 07/15/23 03:30 07/15/23 04:00 Temperature 99.8 F H Pulse Rate 104 H Respiratory Rate 18 Blood Pressure 116/57 L 129/60 Pulse Oximetry 97 Oxygen Flow Rate 07/15/23 04:00 07/15/23 04:17 07/15/23 04:31 Temperature Pulse Rate 120 H 111 H Respiratory Rate 27 H 18 Blood Pressure 93/52 L Pulse Oximetry 98 98 Oxygen Flow Rate 07/15/23 04:31 07/15/23 04:45 07/15/23 05:00 Temperature 98.4 F Pulse Rate 113 H 112 H 102 H Respiratory Rate 18 19 18 Blood Pressure 93/52 L 118/63 Pulse Oximetry 97 95 Oxygen Flow Rate 0 07/15/23 05:00 07/15/23 05:00 07/15/23 05:12 Temperature Pulse Rate 106 H 110 H Respiratory Rate 17 17 Blood Pressure 91/50 L Pulse Oximetry 97 97 Oxygen Flow Rate 07/15/23 05:12 07/15/23 05:30 07/15/23 05:30 Temperature Pulse Rate 103 H Respiratory Rate 16 Blood Pressure 84/50 L 91/55 L Pulse Oximetry 97 Oxygen Flow Rate 07/15/23 05:53 07/15/23 06:00 07/15/23 06:00 Temperature Pulse Rate 103 H 108 H Respiratory Rate 18 19 Blood Pressure 95/54 L Pulse Oximetry 98 98 Oxygen Flow Rate 07/15/23 06:30 07/15/23 06:30 07/15/23 07:00 Temperature Pulse Rate 112 H 112 H Respiratory Rate 22 22 Blood Pressure 108/56 L Pulse Oximetry 99 99 Oxygen Flow Rate 07/15/23 07:00 07/15/23 07:30 07/15/23 07:32 Temperature Pulse Rate 115 H 113 H Respiratory Rate 23 22 Blood Pressure 126/59 L Pulse Oximetry 98 100 Oxygen Flow Rate 07/15/23 07:32 07/15/23 08:00 07/15/23 08:01 Temperature 96.8 F L Pulse Rate 117 H Respiratory Rate 24 Blood Pressure 115/88 111/53 L Pulse Oximetry 99 Oxygen Flow Rate 07/15/23 08:01 07/15/23 08:30 07/15/23 08:30 Temperature Pulse Rate 118 H 118 H Respiratory Rate 25 H 26 H Blood Pressure 113/61 Pulse Oximetry 99 100 Oxygen Flow Rate 07/15/23 09:00 07/15/23 09:00 07/15/23 09:30 Temperature Pulse Rate 100 H Respiratory Rate 20 Blood Pressure 97/53 L 90/50 L Pulse Oximetry 99 Oxygen Flow Rate 07/15/23 09:30 07/15/23 10:00 07/15/23 10:00 Temperature Pulse Rate 102 H 102 H Respiratory Rate 20 20 Blood Pressure 90/49 L Pulse Oximetry 99 99 Oxygen Flow Rate Oxygen Delivery Method Room Air Oxygen Flow Rate 0 Narrative Exam Narrative: The patient remains encephalopathic, doesn't follow commands, moving all 4 extremities. Assessment & Plan Assessment & Plan narrative: ASSESSMENT/PLAN: # Septic shock from likely perforated diverticulitis - Continue empiric IV antibiotics Zosyn. Would plan for at least 7 days of antibiotics and adjust depending on clinical progress. - Patient was evaluated by general surgery, probably appropriate for surgery. - Follow-up on sepsis work-up including blood cultures X 2, sputum cultures, urine culture, procalcitonin. - Monitor markers of tissue perfusion (lactate clearance, base deficit, mental status, urine out). - Titrate pressors (Norepinephrine) to keep MAP > 65. Add vasopressin if necessary. - Continue with maintenance IV fluids. # Atrial fibrillation with RVR - Heart rate controlled on amiodarone drip - Follow-up on TTE # Metastatic breast cancer with metastasis to spine: - Followed by oncology.? S/p radiation therapy.? Chemotherapy has not started yet. ? - Dexamethasone and prednisone taper are currently on hold. ? - May have component of adrenal insufficiency. Would recommend restarting steroids (stress dose steroids) if no improvement in vasopressors requirement the next few hours. # Acute metabolic encephalopathy: - Secondary to sepsis.? Possibly some component of EtOH withdrawal.? Continue to treat underlying etiology. - CTH without contrast is negative for acute retinal pathology. # Hyponatremia: ?-Improving.? Serum sodium now 131.? Monitor with serial BMP. # Metastatic compression fracture of T5-T6: - Supportive care.? Pain control.? PT/OT eval and treatment. # History of alcohol abuse - Given history of alcohol abuse, agree with MVI/folate/thiamine and as needed Ativan depending on CIWA score. - Per RN, not tolerating Ativan (more hypotensive after receiving ativan). Therefore, started on Precedex gtt per hospitalist. - Recommend to add phenobarb, and wean Precedex gtt. Would discourage use of Precedex gtt solely for the purpose of ETOH withdrawal. - When able to take PO meds, start low dose librium. # FEN: Currently NPO due to ALOC. # Glucose: fairly controlled. C/w Accu checks Q6 hours and SSI. BG goal 140-180 # Prophylaxis: SCDs for DVT prophylaxis, no strong indication for stress ulcer prophylaxis # Lines/tubes: PIV, Chicas, PICC line # CODE STATUS: DNR.? Overall prognosis remains poor especially in the setting of metastatic breast cancer.? If she further deteriorates clinically, would reevaluate goals of care and recommend transition to comfort care at that point. # Disposition: Remains in ICU Above plan was discussed with a rounding team including hospitalist, bedside RN, respiratory therapist, dietitian and pharmacist during tele-ICU multidisciplinary rounds this morning.? We will continue to follow.? Please call us if you have any additional questions.
--- NOTE | 2023-07-15 11:17 | OT.IPNOTE ---
Per Hospitalist in rounds, pt not medically appropriate for therapy evals at this time and okay to discharge eval orders.
[2023-07-15] MEDS: HEPARIN 5,000 UNIT/ML VIAL 5000 UNIT SUBCUT ×2 (11:28→20:40)
[2023-07-15] MEDS: FAMOTIDINE 20 MG/2 ML VIAL IV ×2 (11:29→20:38)
[2023-07-15] MEDS: HYDROCORTISONE 100 MG/2 ML VIAL 50 MG IV ×2 (11:29→17:55)
--- NOTE | 2023-07-15 11:49 | PC.NURSE ---
IV on Rt. FA compromised and removed at 1140
--- NOTE | 2023-07-15 12:30 | CM.DPC ---
Addendum entered by TOVA Robibns 07/15/23 14:19: ADD: SW met bedside with pt, who remains sedated and medicated and unable to participate in discussion, and spouse along with MD and RN for Goals of Care discussion. MD did a great job of discussing pt's medical condition and the concerns regarding her current lack of improvement and possible options of continuing tx vs comfort focused care. Spouse seemed to grasp some of the medical concerns and requested time to consider this evening before making a decision on continuing to pursue tx vs change to Comfort Measures. If pt's current tx stopped, high likelihood that pt would in the hospital. BF Original Note: DCP Cont: Per MD and RN, pt continues to be confused with some agitation and CIWA score 13 and medicated for relief and pt not able to participate in goal directed discussion at this time and remains quite sick and not stable for d/c at this time. PT/OT orders cancelled until pt more medically appropriate to participate. Prognosis guarded. Spouse has remained bedside. Plan; SW to follow closely for pt's progress to determine tx vs possible Comfort Care pending status and improvements. PT/OT to be ordered if pt more medically stable to participate. Discharge needs unclear at this time. TOVA Robbins
--- NOTE | 2023-07-15 14:42 | PC.NURSE ---
Day shift note: Pt restless in bed, crying out, when asked if she is in pain she screams out NO, CIWA 14, discussed with hospitalist the fact that pt is not safe to swallow at this time and added Precedex for agitation and pain control as Dilaudid and Ativan were dropping pt BP, pt is already on Levophed for BP support. Pt responding well to Precedex, hoping to be able to remove restraints later this afternoon if she continues to do well on Precedex. has arrived and we will attempt a goals of care meeting with Dr Moreno and case management Eleanor. This nurse met with MD sonal and Eleanor, pt remains sedated and medicated and unable to participate in discussion, for Goals of Care discussion. Dr Moreno discussed pt's medical condition and the concerns regarding her current lack of improvement and possible options of continuing treatment vs comfort care. Spouse seemed to grasp some of the medical concerns and requested time to consider this evening before making a decision. The thought is if pt's current treatment is stopped, high likelihood that pt would in the hospital. Pt rested comfortably in bed during this conversation, VSS at this time, will continue to monitor
--- NOTE | 2023-07-15 15:20 | PM.PN.1 ---
Subjective Subjective Date Patient Seen: 07/15/23 Time Patient Seen: 08:00 Interval history: She is intermittently agitated. She still has abdominal pain. She has continued on the amio gtt and levophed overnight. Exam Vital Signs (past 8 hours): - 07/15/23 07:30 07/15/23 07:32 07/15/23 07:32 Temperature Pulse Rate 115 H 113 H Respiratory Rate 23 22 Blood Pressure 115/88 Pulse Oximetry 98 100 Oxygen Delivery Method 07/15/23 08:00 07/15/23 08:01 07/15/23 08:01 Temperature 96.8 F L Pulse Rate 117 H 118 H Respiratory Rate 24 25 H Blood Pressure 111/53 L Pulse Oximetry 99 99 Oxygen Delivery Method 07/15/23 08:30 07/15/23 08:30 07/15/23 09:00 Temperature Pulse Rate 118 H Respiratory Rate 26 H Blood Pressure 113/61 97/53 L Pulse Oximetry 100 Oxygen Delivery Method 07/15/23 09:00 07/15/23 09:00 07/15/23 09:30 Temperature Pulse Rate 100 H Respiratory Rate 20 Blood Pressure 90/50 L Pulse Oximetry 99 Oxygen Delivery Method Room Air 07/15/23 09:30 07/15/23 10:00 07/15/23 10:00 Temperature Pulse Rate 102 H 102 H Respiratory Rate 20 20 Blood Pressure 90/49 L Pulse Oximetry 99 99 Oxygen Delivery Method 07/15/23 10:30 07/15/23 10:30 07/15/23 11:00 Temperature Pulse Rate 103 H Respiratory Rate 20 Blood Pressure 93/54 L 102/50 L Pulse Oximetry 99 Oxygen Delivery Method 07/15/23 11:00 07/15/23 11:30 07/15/23 11:30 Temperature Pulse Rate 104 H 102 H Respiratory Rate 21 21 Blood Pressure 93/51 L Pulse Oximetry 99 98 Oxygen Delivery Method 07/15/23 12:00 07/15/23 12:01 07/15/23 12:01 Temperature Pulse Rate 104 H 105 H Respiratory Rate 21 20 Blood Pressure 118/56 L Pulse Oximetry 99 99 Oxygen Delivery Method 07/15/23 12:30 07/15/23 12:30 07/15/23 13:00 Temperature 96.8 F L Pulse Rate 104 H 101 H Respiratory Rate 21 21 Blood Pressure 111/57 L Pulse Oximetry 100 98 Oxygen Delivery Method 07/15/23 13:00 07/15/23 13:00 07/15/23 13:30 Temperature 96.9 F L Pulse Rate 102 H Respiratory Rate 21 Blood Pressure 103/53 L Pulse Oximetry 98 Oxygen Delivery Method Room Air 07/15/23 13:30 07/15/23 14:00 07/15/23 14:00 Temperature Pulse Rate 101 H Respiratory Rate 22 Blood Pressure 120/59 L 127/60 Pulse Oximetry 98 Oxygen Delivery Method 07/15/23 14:30 07/15/23 14:30 07/15/23 15:00 Temperature Pulse Rate 99 H 103 H Respiratory Rate 22 22 Blood Pressure 127/63 Pulse Oximetry 98 97 Oxygen Delivery Method Oxygen Delivery Method Room Air Oxygen Flow Rate 0 Narrative Exam Narrative: GEN: ill appearing, confused, somnolent CV: irregular tachycardic PULM: clear bilaterally ABD: soft, tender to palpation Objective Labs 07/15/23 05:00 07/15/23 05:00 Labs: Laboratory Results - last 24 hr 07/15/23 05:00 WBC 7.2 RBC 3.26 L Hgb 10.7 L Hct 31.8 L MCV 97.7 MCH 32.8 MCHC 33.6 RDW 14.2 Plt Count 79 L PT 17.4 H INR 1.5 H Sodium 131 L Potassium 3.5 Chloride 103 Carbon Dioxide 23 BUN 23 H Creatinine 0.90 Estimated GFR > 60 BUN/Creatinine Ratio 25.6 H Glucose 182 H Calcium 7.9 L PFSH Social History household members: spouse Smoking Status: Former smoker alcohol intake: current Assessment & Plan Assessment & Plan narrative: 1. Acute perforated diverticulitis with septic shock -initially admitted on 07/[address] showed air from perforated diverticulitis -on antibiotics with Zosyn -surgery consulted, agree with their assessment that patient is a poor surgical candidate -on am 07/14 was persistently tachcyardic and hypotensive after multiple boluses of fluid -PICC placed -levophed for map goal >65 -follow up urine culture, order blood cultures now, but had already been on antibiotics when blood cultures were drawn -ordered hydrocoritsone 50mg IV q6 as she has been on steroids 2. Atrial fibrillation with RVR -did not respond to fluids or IV metoprolol -given hypotension has been on amio gtt since 07/14 3. Metastatic breast cancer with mets to spine -followed by Oncology of and currently receiving radiation, has undergone 4 rounds so far -has not yet started chemotherapy -holding dexamethasone and prednisone taper due to active infection 4. Back pain due to metastatic compression fracture of t5-t6 -pain control -neurochecks q4 as able -PT/OT if patient improves 5. Acute encephalopathy -likely from infection, possibly from withdrawal -treat infection as above -ordered high dose thiamine -MRI brain if she improves to evaluate for mets, but currently too unstable for imaging 6. Hyponatremia -secondary to hypovolemia -improving 7. Alcohol use -concern that she has component of withdrawal -placed on ciwa protocol -ordered ativan per ciwa protocol
[2023-07-15] MEDS: AMIODARONE 360 MG/200 ML PIGGYBACK 16.7 MG IV (15:31)
[2023-07-15] MEDS: dexmedeTOMIDine in 0.9 % NaCL 400 MCG/100 ML PLAST..BAG 18.8 MCG IV ×2 (17:54→22:58)
--- NOTE | 2023-07-15 18:04 | PM.PN.1 ---
Subjective Subjective Date Patient Seen: 07/15/23 Time Patient Seen: 18:04 Interval history: Still unstable and requiring pressures. Exam Vital Signs (past 8 hours): - 07/15/23 10:30 07/15/23 10:30 07/15/23 11:00 Temperature Pulse Rate 103 H Respiratory Rate 20 Blood Pressure 93/54 L 102/50 L Pulse Oximetry 99 Oxygen Delivery Method 07/15/23 11:00 07/15/23 11:30 07/15/23 11:30 Temperature Pulse Rate 104 H 102 H Respiratory Rate 21 21 Blood Pressure 93/51 L Pulse Oximetry 99 98 Oxygen Delivery Method 07/15/23 12:00 07/15/23 12:01 07/15/23 12:01 Temperature Pulse Rate 104 H 105 H Respiratory Rate 21 20 Blood Pressure 118/56 L Pulse Oximetry 99 99 Oxygen Delivery Method 07/15/23 12:30 07/15/23 12:30 07/15/23 13:00 Temperature 96.8 F L Pulse Rate 104 H 101 H Respiratory Rate 21 21 Blood Pressure 111/57 L Pulse Oximetry 100 98 Oxygen Delivery Method 07/15/23 13:00 07/15/23 13:00 07/15/23 13:30 Temperature 96.9 F L Pulse Rate 102 H Respiratory Rate 21 Blood Pressure 103/53 L Pulse Oximetry 98 Oxygen Delivery Method Room Air 07/15/23 13:30 07/15/23 14:00 07/15/23 14:00 Temperature Pulse Rate 101 H Respiratory Rate 22 Blood Pressure 120/59 L 127/60 Pulse Oximetry 98 Oxygen Delivery Method 07/15/23 14:30 07/15/23 14:30 07/15/23 15:00 Temperature Pulse Rate 99 H 103 H Respiratory Rate 22 22 Blood Pressure 127/63 Pulse Oximetry 98 97 Oxygen Delivery Method 07/15/23 15:01 07/15/23 15:01 07/15/23 15:16 Temperature Pulse Rate 105 H 103 H Respiratory Rate 22 22 Blood Pressure 71/42 L Pulse Oximetry 97 98 Oxygen Delivery Method 07/15/23 15:16 07/15/23 15:30 07/15/23 15:31 Temperature Pulse Rate 96 H 101 H Respiratory Rate 22 22 Blood Pressure 132/63 Pulse Oximetry 98 98 Oxygen Delivery Method 07/15/23 15:31 07/15/23 15:45 07/15/23 15:45 Temperature Pulse Rate 97 H Respiratory Rate 22 Blood Pressure 141/67 H 148/64 H Pulse Oximetry 98 Oxygen Delivery Method 07/15/23 16:00 07/15/23 16:01 07/15/23 16:01 Temperature 96.9 F L Pulse Rate 95 H 98 H Respiratory Rate 23 23 Blood Pressure 155/70 H Pulse Oximetry 98 98 Oxygen Delivery Method 07/15/23 16:30 07/15/23 17:00 Temperature Pulse Rate 99 H 93 H Respiratory Rate 21 21 Blood Pressure Pulse Oximetry 98 98 Oxygen Delivery Method Oxygen Delivery Method Room Air Oxygen Flow Rate 0 Narrative Exam Narrative: Sedated, abdomen is soft and not overly distended. Objective Labs 07/15/23 05:00 07/15/23 05:00 Labs: Laboratory Results - last 24 hr 07/15/23 05:00 WBC 7.2 RBC 3.26 L Hgb 10.7 L Hct 31.8 L MCV 97.7 MCH 32.8 MCHC 33.6 RDW 14.2 Plt Count 79 L PT 17.4 H INR 1.5 H Sodium 131 L Potassium 3.5 Chloride 103 Carbon Dioxide 23 BUN 23 H Creatinine 0.90 Estimated GFR > 60 BUN/Creatinine Ratio 25.6 H Glucose 182 H Calcium 7.9 L PFSH Social History household members: spouse Smoking Status: Former smoker alcohol intake: current Assessment & Plan Assessment & Plan narrative: Continue medical management of diverticulitis. She is not a surgical candicate
--- NOTE | 2023-07-15 19:40 | PM.ICURNDS ---
- :: This patient was seen via real time interactive two-way audiovisual telecommunication. Note: Comfortable in bed, on precedex & amio drips, HR 70s, on levo at 0.05 mcg/kg/min, at bedside , no changes in the plan.
[2023-07-15] MEDS: NOREPINEPHRINE BITARTRATE/D5W 4 MG/250 ML PLAST..BAG 17.86 MG IV (20:41)
[2023-07-16] VITALS (24 sets, daily range): BP systolic 81–164; BP diastolic 47–76; PULSE 82–96; RESP 14–27; TEMP 36.1–37.5; O2SAT 99–100
[2023-07-16] MEDS: HYDROCORTISONE 100 MG/2 ML VIAL 50 MG IV ×2 (00:17→05:44)
[2023-07-16] MEDS: PIPERACILLIN/TAZO 3.375 GM in SODIUM CHLORIDE 0.9% 100 ML IV ×2 (00:17→09:00)
[2023-07-16] MEDS: dexmedeTOMIDine in 0.9 % NaCL 400 MCG/100 ML PLAST..BAG 18.8 MCG IV ×2 (03:30→09:15)
[2023-07-16] MEDS: AMIODARONE 360 MG/200 ML PIGGYBACK 16.7 MG IV (03:37)
[2023-07-16 05:18] LABS: INR 1.4 (0.9-1.3); Prothrombin Time 15.6 SECONDS (10.1-12.7)
[2023-07-16 05:23] LABS: Blood Urea Nitrogen 29 mg/dL (7-17); Calcium 8.4 mg/dL (8.4-10.2); Carbon Dioxide 20 mmol/L (22-32); Chloride 103 mmol/L (98-107); Estimated Glomerular Filt Rate 43 mL/min (>60); Glucose 178 mg/dL (80-110); HEMOLYSIS < 15 (0-50); Sodium 133 mmol/L (137-145)
--- NOTE | 2023-07-16 06:44 | PC.NURSE ---
casino shift manager RN note Pt resting quietly in bed, sleeping most of the night, does not follow commands or answer questions, startles with stimulation, mumbles and reaches for IV lines, PERRL 2mm sluggish, VSS, afebrile, PPPx4, mild gen edema, Afib 90s, dilt/levophed/amiodarone gtts, lungs clear and decreased, O2 sats >92% on RA, refusing oral care, mouth dry, abd round soft with hypo BS, r/c draining mod amt dark yellow urine, skin warm and dry, PICC PERI patent, meds and labs as ordered, seizure pads on bed maintained, CIWA <6, continue to monitor
[2023-07-16] MEDS: THIAMINE 500 MG in SODIUM CHLORIDE 0.9% 100 ML 420 MG IV (09:27)
[2023-07-16] MEDS: HEPARIN 5,000 UNIT/ML VIAL 5000 UNIT SUBCUT (09:28)
--- NOTE | 2023-07-16 09:35 | PM.PN.EICU ---
Subjective Subjective IF CAMERA ACTIVATED, patient seen via real-time interactive audiovisual communication: Camera activated Consent obtained for tele-frankfurter inspector care: Yes Patient Location: ICU Provider location (State): [place] Other participants/roles: DAMON Friedman Interval history: No acute issues Remains encephalopathic and not following commands Intermittent episode of agitation requiring precedex gtt On levophed 0.025 mcg/kg/min On precedex 0.8 Awaiting for spouse to arrive for GOC discussion Not a candidate for MRI brain due to no MRI pump unless patient is off of pressor and precedex Current Medications Current Medications Medications: Home Medications CYANOCOBALAMIN (VITAMIN B-12) (Vitamin B-12) 1 tab PO Q DAY ##0 02/03/12 [History Confirmed 07/13/23] VITAMIN D 3,000 iu PO QDAY ##0 02/03/12 [History Confirmed 07/13/23] bumetanide 1 mg tablet 1 mg PO SEEINSTR 07/13/23 [History Confirmed 07/13/23] dexamethasone 1 mg tablet 1 mg PO SEEINSTR 07/13/23 [History Confirmed 07/13/23] dexamethasone 2 mg tablet 2 mg PO SEEINSTR 07/13/23 [History Confirmed 07/13/23] ketoconazole 2 % topical cream 1 applic topical BID 07/13/23 [History Confirmed 07/13/23] losartan 50 mg tablet 50 mg PO DAILY 07/13/23 [History Confirmed 07/13/23] metoprolol tartrate 25 mg tablet 25 mg PO BID 07/13/23 [History Confirmed 07/13/23] potassium chloride 20 mEq tablet,extended release 20 meq PO BID 07/13/23 [History Confirmed 07/13/23] prednisone 1 mg tablet 2 mg PO DAILY 07/13/23 [History Confirmed 07/13/23] prednisone 5 mg tablet 5 mg PO SEEINSTR 07/13/23 [History Confirmed 07/13/23] simvastatin 20 mg tablet 20 mg PO ONCE PM 07/13/23 [History Confirmed 07/13/23] warfarin 5 mg tablet 5 mg PO SEEINSTR 07/13/23 [History Confirmed 07/13/23] Visit Medications (administered) Generic Name Dose Route Start Last Admin Trade Name Freq PRN Reason Stop Dose Admin Folic Acid 1 mg 07/14/23 09:00 07/16/23 09:16 Folic Acid 1 Mg Tablet PO Not Given DAILY BERT Heparin Sodium (Porcine) 5,000 unit 07/15/23 09:15 07/16/23 09:28 Heparin 5,000 Unit/Ml Vial SUBCUT 5,000 unit BID BERT Administration Hydrocortisone 50 mg 07/15/23 12:00 07/16/23 05:44 Hydrocortisone 100 Mg/2 Ml Vial IV 50 mg Q6HR BERT Administration Hydromorphone HCl 0.5 mg 07/13/23 16:00 07/14/23 23:20 Hydromorphone 0.5 Mg Inj IV 0.5 mg Q3H PRN Administration Pain, Moderate (4-6) Piperacillin Sod/Tazobactam 100 mls @ 25 mls/hr 07/13/23 16:15 07/16/23 09:00 Sod 3.375 gm/ Sodium Chloride IV 25 mls/hr Q8H BERT Administration NOREPINEPHRINE BITARTRATE/D5W 4 mg in 250 mls @ 35.72 mls/hr 07/14/23 08:13 07/16/23 00:42 Levophed IV 0 mcg/kg/min TITRATE BERT 0 mls/hr Titration Protocol 0.1 MCG/KG/MIN Thiamine HCl 500 mg/ Sodium 105 mls @ 420 mls/hr 07/14/23 09:45 07/16/23 09:27 Chloride IV 420 mls/hr TID BERT Administration dexmedeTOMIDine in 0.9 % NaCL 400 mcg in 100 mls @ 4.7 mls/hr 07/15/23 08:15 07/16/23 09:15 Precedex IV 0.8 mcg/kg/hr TITRATE BERT 18.8 mls/hr Administration Protocol 0.2 MCG/KG/HR Amiodarone HCl/Dextrose 360 mg in 200 mls @ 16.7 mls/hr 07/16/23 03:15 07/16/23 03:37 Nexterone IV 07/16/23 15:14 16.7 mls/hr CONT BERT 16.7 mls/hr Administration Protocol Lorazepam 0 mg 07/14/23 07:58 07/15/23 04:14 Lorazepam 2 Mg/Ml Inj IV 2 mg CIWAPRN PRN Administration Alcohol Withdrawal Protocol Metoprolol Tartrate 25 mg 07/13/23 15:35 07/16/23 09:16 Metoprolol Ir 25 Mg Tablet PO Not Given BID BERT Multivitamins 1 tab 07/14/23 09:00 07/16/23 09:17 Multivitamin 1 Tablet PO Not Given DAILY [facility] Oxycodone HCl 5 mg 07/13/23 15:29 07/14/23 02:00 Oxycodone Ir 5 Mg Tablet PO 5 mg Q3HR PRN Administration Pain, Moderate (4-6) Objective Labs 07/15/23 05:00 07/16/23 05:00 Labs: Laboratory Results - last 24 hr 07/16/23 05:00 PT 15.6 H INR 1.4 H Sodium 133 L Potassium 4.0 Chloride 103 Carbon Dioxide 20 L BUN 29 H Creatinine 1.26 H Estimated GFR 43 L BUN/Creatinine Ratio 23.0 H Glucose 178 H Calcium 8.4 Exam Vital Signs (past 8 hours): - 07/16/23 02:00 07/16/23 02:00 07/16/23 02:30 Temperature Pulse Rate 88 84 Respiratory Rate 17 17 Blood Pressure 118/60 Pulse Oximetry 100 100 Oxygen Flow Rate 07/16/23 03:00 07/16/23 03:00 07/16/23 04:00 Temperature 97.5 F L Pulse Rate 85 86 Respiratory Rate 18 16 Blood Pressure 129/64 Pulse Oximetry 100 100 Oxygen Flow Rate 0 07/16/23 04:00 07/16/23 05:00 07/16/23 05:01 Temperature Pulse Rate 82 Respiratory Rate 16 Blood Pressure 138/64 113/59 L Pulse Oximetry 100 Oxygen Flow Rate 07/16/23 05:01 07/16/23 06:00 07/16/23 06:01 Temperature Pulse Rate 88 89 Respiratory Rate 17 16 Blood Pressure 150/71 H Pulse Oximetry 100 100 Oxygen Flow Rate 07/16/23 06:01 07/16/23 07:00 07/16/23 07:00 Temperature Pulse Rate 88 88 Respiratory Rate 17 16 Blood Pressure 139/71 Pulse Oximetry 100 100 Oxygen Flow Rate 07/16/23 08:00 07/16/23 08:00 07/16/23 09:00 Temperature Pulse Rate 88 Respiratory Rate 17 Blood Pressure 150/72 H 154/71 H Pulse Oximetry 100 Oxygen Flow Rate 07/16/23 09:00 Temperature Pulse Rate 87 Respiratory Rate 17 Blood Pressure Pulse Oximetry 100 Oxygen Flow Rate Oxygen Delivery Method Room Air Oxygen Flow Rate 0 Narrative Exam Narrative: Sleeping comfortably on precedex 0.8 mcg Assessment & Plan Assessment & Plan narrative: NEURO: # Acute encephalopathy -- Unclear etiology. Ddx include toxic metabolic encephaloptahy vs septic encephalopathy vs brain metastasis -- Will need MRI brain once off sedation and pressor -- Avoid sedatives -- On Precedex gtt to seek RASS goal -1 to 0 -- Cont frequent reorientation RESP: -- On room air -- Encourage IS when mentation improve CVS: # Shock -- Concern for distributive -- On low dose levophed -- On stress dose steroids -- Sepsis rx as below -- MAP goal > 65 : # EDIS -- Avoid nephrotoxin agents -- Trend BMP -- Monitor UOP GI: # Perforated diverticulitis -- On zosyn -- Follow by surgery ID: # Septic shock -- Secondary to perforated diverticulitis -- On zosyn -- Cx negative to date ENDO: -- Goal BS < 180 Awaiting for spouse to arrive at bedside for GOC discussion with primary bedside team. Time Spent With Patient Time with patient: 30 to 49 minutes with 50% spent counseling/coordinating care
[2023-07-16] MEDS: HYDROMORPHONE 0.5 MG INJ IV (09:36)
[2023-07-16] MEDS: MORPHINE 2 MG/ML INJ 4 MG IV ×2 (12:04→13:44)
[2023-07-16] MEDS: SCOPOLAMINE 1 PATCH TOP (12:05)
--- NOTE | 2023-07-16 15:16 | PM.PN.1 ---
Subjective Subjective Date Patient Seen: 07/16/23 Time Patient Seen: 08:00 Interval history: She remains altered. Remains on pressors and antibiotics. Discussed with family, who note that goals of care are comfort care. Exam Vital Signs (past 8 hours): - 07/16/23 08:00 07/16/23 08:00 07/16/23 09:00 Temperature Pulse Rate 88 Respiratory Rate 17 Blood Pressure 150/72 H 154/71 H Pulse Oximetry 100 07/16/23 09:00 07/16/23 09:35 07/16/23 10:00 Temperature 96.9 F L Pulse Rate 87 Respiratory Rate 17 Blood Pressure 164/76 H Pulse Oximetry 100 07/16/23 10:00 07/16/23 11:00 07/16/23 11:01 Temperature Pulse Rate 91 H 88 Respiratory Rate 14 14 Blood Pressure 157/70 H Pulse Oximetry 99 99 07/16/23 11:01 07/16/23 12:00 07/16/23 12:00 Temperature Pulse Rate 85 92 H Respiratory Rate 14 14 Blood Pressure 160/74 H Pulse Oximetry 99 99 Oxygen Delivery Method Room Air Oxygen Flow Rate 0 Narrative Exam Narrative: GEN: ill appearing, confused, somnolent CV: irregular PULM: clear bilaterally ABD: soft, moans with palpation Objective Labs 07/15/23 05:00 07/16/23 05:00 Labs: Laboratory Results - last 24 hr 07/16/23 05:00 PT 15.6 H INR 1.4 H Sodium 133 L Potassium 4.0 Chloride 103 Carbon Dioxide 20 L BUN 29 H Creatinine 1.26 H Estimated GFR 43 L BUN/Creatinine Ratio 23.0 H Glucose 178 H Calcium 8.4 PFSH Social History household members: spouse Smoking Status: Former smoker alcohol intake: current Assessment & Plan Assessment & Plan narrative: 1. Acute perforated diverticulitis with septic shock -initially admitted on 07/[address] showed air from perforated diverticulitis -on antibiotics with Zosyn -surgery consulted, agree with their assessment that patient is a poor surgical candidate -on am 07/14 was persistently tachcyardic and hypotensive after multiple boluses of fluid -PICC placed -levophed for map goal >65 -follow up urine culture, order blood cultures now, but had already been on antibiotics when blood cultures were drawn -ordered hydrocoritsone 50mg IV q6 as she has been on steroids 2. Atrial fibrillation with RVR -did not respond to fluids or IV metoprolol -given hypotension has been on amio gtt since 07/14 3. Metastatic breast cancer with mets to spine -followed by Oncology of and currently receiving radiation, has undergone 4 rounds so far -has not yet started chemotherapy -holding dexamethasone and prednisone taper due to active infection 4. Back pain due to metastatic compression fracture of t5-t6 -pain control -neurochecks q4 as able -PT/OT if patient improves 5. Acute encephalopathy -likely from infection, possibly from withdrawal -treat infection as above -ordered high dose thiamine -MRI brain if she improves to evaluate for mets, but currently too unstable for imaging 6. Alcohol use -concern that she has component of withdrawal -placed on ciwa protocol -ordered ativan per ciwa protocol 7. EDIS -secondary to shock and infection Discussion was had with family on 07/16 who stated goals of care were comfort care.
[2023-07-16] MEDS: MORPHINE 100 MG in DEXTROSE 5 % IN WATER 90 ML 10 MG IV (15:20)
--- NOTE | 2023-07-16 18:30 | PC.NURSE ---
Day shift note: After Goals of care meeting with this nurse, Dr Moreno and spouse Fox, the decision was made to transition pt to comfort care, all monitoring equipment removed, castillo catheter remains in place draining dark lisseth urine, Morphine gtt infusing at 20 mg/hr to provide pt with pain control, pt resting in bed, occasionally mumbles and frowns expressing pain via FLACC pain scale of 6. is at bedside, VSS QD, turning pt with bed as she is bridged in the bed. Will continue to monitor
[2023-07-16] MEDS: MORPHINE 100 MG in DEXTROSE 5 % IN WATER 90 ML 20 MG IV (21:08)
[2023-07-16] MEDS: LORazepam 2 MG/ML INJ 1 MG IV (21:30)
--- NOTE | 2023-07-17 00:49 | PC.NURSE ---
Addendum entered by Jo-Ann Mo R.N. 07/17/23 06:18: 0505- [facility] here to pickers material handlers patient. Post mortum care completed, Picc line removed, castillo catheter removed. S/O Fox aware he needs to contact [facility] tomorrow. Addendum entered by Jo-Ann Mo R.N. 07/17/23 04:31: 0420- Patient without heart tones or Respirations. S/O Fox at bedside. Coordinator Lynne notified of time of . Plan to transport patient to [facility] and then further instruction will be given by family to [place] on final arrangements. Will monitor. Original Note: 0049- Contacted patients Fox to let him no that patient is looking as though she may . Heart rate is elevated, respiratory rate is 4-6 and agonal, saturations as low as 50 but they do rebound to the low 80's. Morphine gtt titrated to 15ml/hr. Will monitor.
[2023-07-17] MEDS: MORPHINE 100 MG in DEXTROSE 5 % IN WATER 90 ML 15 MG IV (03:35)
--- NOTE | 2023-07-17 08:31 | PM.DDS.1 ---
Discharge Summary History of Illness Narrative: Maricarmen Springer is a 78-year-old female with past medical history of atrial fibrillation on warfarin, recently diagnosed metastatic breast cancer receiving radiation at , hypertension, hyperlipidemia, daily alcohol use, and obesity who presents with weakness, increased back pain, and abdominal pain. Patient states she is had persistent thoracic back pain between her shoulder blades, she is been taking oxycodone for pain. She states she spent most of the weekend bed. She went to get out of bed this morning and sort of slid out of bed to the floor with increase in her thoracic pain. She received 10 mg total of morphine and 5 mg aliquots in transport. She was still quite uncomfortable received additional dose of Dilaudid in his much more comfortable at this time. She states no significant weakness. She denies headache, no fevers, no chest pain or shortness of breath. She denies any nausea or vomiting no new GI or urinary symptoms. No incontinence. No numbness tingling or weakness. Patient states she is felt woozy and just unwell in general. She states this is a recent diagnosis her workup has been outpatient so far. She states she has a history of breast cancer had a lumpectomy was thought to be cured and then recently found to have new breast cancer with metastases some on top of her spine. Patient states she started radiation last week, she is not received any chemotherapy. She does not recall all her medications but no she is on warfarin for atrial fibrillation, metoprolol for hypertension, medication for dyslipidemia she denies any diabetes, renal issues no prior coronary artery disease. She denies any drug allergies. Former smoker, drinks 2-3 glasses of wine daily, no recreational drugs. Patient states her primary care and workup have been through [facility]. She denies any recent hospitalization. Hospital Course Date of Admission: 07/13/23 14:16 Date of : 07/17/23 Primary care provider: Doctor Emmett MD Consults: 07/13/23 15:14 Consult to Physical Therapy Evaluate & Treat Comment: Physician Instructions: Evaluate and Treat 07/13/23 15:22 Consult to Occupational Therapy Evaluate & Treat Comment: Physician Instructions: Evaluate and treat 07/16/23 10:50 Consult to Discharge Planning Routine Comment: Consult to Hospice Referral Urgent Comment: Discharge Diagnosis: 1. Acute perforated diverticulitis with septic shock -initially admitted on 07/[address] showed air from perforated diverticulitis -on antibiotics with Zosyn -surgery consulted, agree with their assessment that patient is a poor surgical candidate -on am 07/14 was persistently tachcyardic and hypotensive after multiple boluses of fluid -now comfort care per family 2. Atrial fibrillation with RVR -did not respond to fluids or IV metoprolol -given hypotension has been on amio gtt since 07/14 -stopped amio due to comfort care 3. Metastatic breast cancer with mets to spine -followed by Oncology of and currently receiving radiation, has undergone 4 rounds so far -has not yet started chemotherapy -holding dexamethasone and prednisone taper due to active infection 4. 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 Acute encephalopathy -likely from infection, possibly from withdrawal -treat infection as above -ordered high dose thiamine -MRI brain if she improves to evaluate for mets, but currently too unstable for imaging 6. Alcohol use -concern that she has component of withdrawal -placed on ciwa protocol -ordered ativan per ciwa protocol 7. EDIS -secondary to shock and infection Hospital Course: Admitted for acute perforated diverticulitis with septic shock, A-fib RVR and worsening metastatic breast cancer to spine. She was put on pressors and amio drip, but then family decided to pursue comfort care. Patient on 07/17 at 0400. Objective Labs 07/15/23 05:00 07/16/23 05:00
== END 2023-07-17 05:05 | disposition expired | DRG 391 ==
LOC: ED 13:35 → AC 14:16 → ICU 17:25
PROVIDERS: Internal Medicine; Admitting Provider Student in an Organized Health Care Education/Training Program; Emergency Provider Emergency Medicine; Referring Provider Emergency Medicine; Visit Provider Student in an Organized Health Care Education/Training Program
DX: K57.00 Diverticulitis of small intestine with perforation and abscess without bleeding (principal); A41.9 Sepsis, unspecified organism; G93.41 Metabolic encephalopathy; R65.21 Severe sepsis with septic shock; C79.51 Secondary malignant neoplasm of bone; E87.1 Hypo-osmolality and hyponatremia; M84.58XA Pathological fracture in neoplastic disease, other specified site, initial encounter for fracture; N17.9 Acute kidney failure, unspecified; F10.939 Alcohol use, unspecified with withdrawal, unspecified; I48.91 Unspecified atrial fibrillation; I10 Essential (primary) hypertension; E78.5 Hyperlipidemia, unspecified; C50.911 Malignant neoplasm of unspecified site of right female breast; R79.1 Abnormal coagulation profile; E86.0 Dehydration; Z79.01 Long term (current) use of anticoagulants; Z66 Do not resuscitate; Z51.5 Encounter for palliative care; Z87.891 Personal history of nicotine dependence
CPT/HCPCS: 36415; 36569; 36592; 70450; 71260; 74019; 74177; 80048; 80053; 80184; 81001; 82962; 83605; 83735; 84145; 85025; 85027; 85610; 85730; 87040; 87086; 93005; 96361; 96365; 96367; 96375; 96376; 99233; 99283; 99291; J0282; J1170; J1644; J1720; J2060; J2270; J2543; J3430